=== PATIENT | female | born 1945 | race Hispanic/Latino ===

== ENCOUNTER 2016-12-08 20:38 | Emergency (ER) | payer MEDICARE, OTHER ==
[2016-12-08 20:55] VITALS: BP 136/86; PULSE 105; RESP 16; TEMP 98.7; O2SAT 100
[2016-12-08 21:52] LABS: RBC URINE 16 /hpf (0-3); URINE BACTERIA FEW (<OCC)
--- NOTE | 2016-12-08 21:59 | ED PDOC ---
HPI: Female Pain Time Seen by Provider: 12/08/16 20:57 Chief Complaint (Nursing): Female Genitourinary Chief Complaint (Provider): Superpubic pressure, Dysuria, Hematuria, History Per: Patient History/Exam Limitations: no limitations Onset/Duration Of Symptoms: Hrs Current Symptoms Are (Timing): Still Present Additional Complaint(s): Mari Venegas, a 71 year old female, presents to the ED complaining of superpubic pressure, dysuria, hematuria and frequency which she developed today. The patient states that she was recently diagnosed with an upper respiratory tract infection by her primary care provider and was placed on 500mg of levofloxacin. PMD:Claudio Segovia Past Medical History Reviewed: Historical Data, Nursing Documentation, Vital Signs Vital Signs: Last Vital Signs Temp 98.7 F 12/08/16 20:53 Pulse 105 H 12/08/16 20:53 Resp 16 12/08/16 20:53 BP 136/86 12/08/16 20:53 Pulse Ox 100 12/08/16 20:53 - Medical History PMH: Arthritis, Asthma (Bronchial), Diabetes, HTN - Surgical History Surgical History: Tonsillectomy - Family History Family History: States: Unknown Family Hx - Home Medications Home Medications: Ambulatory Orders Medication Instructions Recorded Naproxen [Naprosyn] 500 mg PO Q12H #20 tab 10/10/15 Levofloxacin 250 mg PO DAILY 7 Days 12/08/16 - Allergies Allergies/Adverse Reactions: Allergies Allergy/AdvReac Type Severity Reaction Status Date / Time iodine Allergy RASH Verified 12/08/16 20:53 Penicillins Allergy RASH Verified 12/08/16 20:53 Sulfa (Sulfonamide Allergy RASH Verified 12/08/16 20:53 Antibiotics) Review of Systems ROS Statement: Except As Marked, All Systems Reviewed And Found Negative Genitourinary Female: Positive for: Dysuria, Frequency, Hematuria, Other ( Experiencing superpubic Pressure.) Physical Exam - Reviewed Nursing Documentation Reviewed: Yes Vital Signs Reviewed: Yes - Physical Exam Appears: Positive for: Non-toxic, No Acute Distress Head Exam: Positive for: ATRAUMATIC, NORMOCEPHALIC Skin: Positive for: Normal Color, Warm, Dry Eye Exam: Positive for: Normal appearance, EOMI, PERRL ENT: Positive for: Normal ENT Inspection Neck: Positive for: Normal, Painless ROM, Supple Cardiovascular/Chest: Positive for: Regular Rate, Rhythm, Chest Non Tender. Negative for: Tachycardia Respiratory: Positive for: Normal Breath Sounds. Negative for: Wheezing, Respiratory Distress Gastrointestinal/Abdominal: Positive for: Normal Exam, Soft. Negative for: Tenderness Back: Positive for: Normal Inspection. Negative for: L CVA Tenderness, R CVA Tenderness Extremity: Positive for: Normal ROM. Negative for: Tenderness, Deformity, Swelling Neurologic/Psych: Positive for: Alert, Oriented - ECG O2 Sat by Pulse Oximetry: 100 (RA) Pulse Ox Interpretation: Normal Medical Decision Making Medical Decision Makin:57 Initial Impression: 71 year old female presenting with Urinary Tract Infection Initial Plan: * Udip * Urine culture * Urinalysis * Reevaluation Scribe Attestation Documented by Julianna Green acting as a scribe for Romie Zhou MD. Provider Attestation: All medical record entries made by the Scribe were at my direction and personally dictated by me. I have reviewed the chart and agree that the record accurately reflects my personal performance of the history, physical exam, medical decision making, and the department course for this patient. I have also personally directed, reviewed, and agree with the discharge instructions and disposition. Disposition - Clinical Impression Clinical Impression: Urinary tract infection - Disposition Referrals: [facility] [Provider Group] Condition: STABLE Prescriptions: Levofloxacin 250 mg PO DAILY 7 Days Instructions: Urinary Tract Infection in Women (ED)
[2016-12-08 22:00] LABS: URINE BILIRUBIN NEGATIVE (NEGATIVE); URINE BLOOD LARGE (NEGATIVE); URINE COLOR STRAW (YELLOW); URINE GLUCOSE (UA) NEG (Normal); URINE KETONE NEGATIVE (NEGATIVE); URINE PROTEIN 30 mg/dL (NEGATIVE); URINE UROBILINOGEN 0.2-1.0 mg/dL (0.2-1.0)
[2016-12-08 22:01] LABS: URINE LEUKOCYTE ESTERASE LARGE Leu/uL (Negative); WBC URINE 110 /hpf (0-5)
== END 2016-12-08 22:32 | disposition home or self-care (01) ==
LOC: H.ER 20:38
DX: N39.0 Urinary tract infection, site not specified (principal)

== ENCOUNTER 2016-12-17 05:32 | Inpatient (IN) | payer MEDICARE, OTHER ==
[2016-12-17 05:41] VITALS: BMI 29.0
[2016-12-17] MEDS ORDERED: Albuterol-Ipratrop 3 mg / 0.5 (3 ml) UD INH STA ×2 (06:03→06:04)
--- NOTE | 2016-12-17 06:13 | ED PDOC ---
HPI: SOB/CHF/COPD Chief Complaint (Provider): Shortness of Breath History Per: Patient History/Exam Limitations: no limitations Onset/Duration Of Symptoms: Hrs (x2) Current Symptoms Are (Timing): Still Present Quality: Tightness Current Respiratory Medications: Albuterol (Nebulizer), Steroid Inhaler (Just finished) <Vladimir Martinez - Last Filed: 12/17/16 06:55> <Chris Shi Jr. - Last Filed: 12/17/16 08:25> Time Seen by Provider: 12/17/16 05:38 Chief Complaint (Nursing): Cough, Cold, Congestion Additional Complaint(s): 71 year old female presents to ED with complaints of SOB x2 hours and a past medical history of asthma and COPD. Patient states she woke up x2 hours ago with SOB and chest tightness, with her nebulizer providing little relief. Notes that she was diagnosed with COPD x2 weeks ago, is currently prescribed Levaquin for COPD exacerbation, and just finished a course of steroids. States that she used to only be diagnosed with asthma in the past. PCP: Claudio Segovia (Vladimir Martinez) Past Medical History Reviewed: Historical Data, Nursing Documentation, Vital Signs - Medical History PMH: Arthritis, Asthma (Bronchial), COPD, Diabetes, HTN - Surgical History Surgical History: Tonsillectomy Denies: No Surg Hx - Family History Family History: States: No Known Family Hx - Living Arrangements Living Arrangements: With Family - Social History Current smoker - smoking cessation education provided: No Ex-Smoker (has not smoked in the last 12 months): No Alcohol: None Drugs: Cannabis <Vladimir Martinez - Last Filed: 12/17/16 06:55> <Chris Shi Jr. - Last Filed: 12/17/16 08:25> Vital Signs: Last Vital Signs Temp 97.9 F 12/17/16 05:41 Pulse 115 H 12/17/16 05:41 Resp 17 12/17/16 05:41 BP 141/75 12/17/16 05:41 Pulse Ox 100 12/17/16 08:10 - Home Medications Home Medications: Ambulatory Orders Medication Instructions Recorded Naproxen [Naprosyn] 500 mg PO Q12H #20 tab 10/10/15 Levofloxacin 250 mg PO DAILY 7 Days 12/08/16 - Allergies Allergies/Adverse Reactions: Allergies Allergy/AdvReac Type Severity Reaction Status Date / Time iodine Allergy RASH Verified 12/17/16 05:40 Penicillins Allergy RASH Verified 12/17/16 05:40 Sulfa (Sulfonamide Allergy RASH Verified 12/17/16 05:40 Antibiotics) Curb-65 Severity Score - CURB-65 Severity Score Confusion: No Respiratory Rate greater than/equal to 30: No Systolic BP <90 or Diastolic BP less than/equal 60mmHg: No Age >64: Yes Curb-65 Score: 1 Percentage 30-day mortality: 2.7% <Vladimir Martinez - Last Filed: 12/17/16 06:55> Wells Criteria for PE - Wells Criteria for Pulmonary Embolism Clinical Signs and Symptoms of DVT: No P.E is #1 Diagnosis, or Equally Likely: No Heart Rate >100: Yes Immobilization at least 3 days;Surgery previous 4 weeks: No Previous, objectively diagnosed PE or DVT: No Hemoptysis: No Malignancy w/treatment within 6 months, or palliative: No Total Score: 1.5 <Vladimir Martinez - Last Filed: 12/17/16 06:55> Review of Systems ROS Statement: Except As Marked, All Systems Reviewed And Found Negative ENT: Positive for: Nose Congestion Respiratory: Positive for: Cough, Shortness of Breath, Other (Chest tightness) <Vladimir Martinez Last Filed: 12/17/16 06:55> Physical Exam - Reviewed Nursing Documentation Reviewed: Yes Vital Signs Reviewed: Yes - Physical Exam Appears: Positive for: Non-toxic, No Acute Distress Head Exam: Positive for: ATRAUMATIC Skin: Positive for: Normal Color, Warm, Dry ENT: Positive for: Normal ENT Inspection Cardiovascular/Chest: Positive for: Regular Rate, Rhythm. Negative for: Murmur Respiratory: Positive for: Rhonchi (at bases bilaterally). Negative for: Respiratory Distress Extremity: Negative for: Deformity Neurologic/Psych: Positive for: Alert, Oriented. Negative for: Motor/Sensory Deficits <Vladimir Martinez - Last Filed: 12/17/16 06:55> - ECG O2 Sat by Pulse Oximetry: 100 (RA) Pulse Ox Interpretation: Normal <Vladimir Martinez - Last Filed: 12/17/16 06:55> - Laboratory Results Result Diagrams: 12/17/16 06:44 12/17/16 06:44 <Chris Shi Jr. - Last Filed: 12/17/16 08:25> Medical Decision Making <Vladimir Martinez - Last Filed: 12/17/16 06:55> <Chris Shi Jr. - Last Filed: 12/17/16 08:25> Medical Decision Makin Initial impression: chest tightness and SOB in setting of known COPD and asthma Initial plan: * EKG * Labs * Trop I * PTT/PT * Duonebs 3mL INH x2 * Methylprednisolone 125mg IVP * BCx * Peak flow pre/post Tx x2 * UA * Re-eval Scribe Attestation: Documented by Asia Paredes acting as a scribe for Vladimir Martinez MD. Scribe Attestation: All medical record entries made by the Scribe were at my direction and personally dictated by me. I have reviewed the chart and agree that the record accurately reflects my personal performance of the history, physical exam, medical decision making, and the department course for this patient. I have also personally directed, reviewed, and agree with the discharge instructions and disposition. (Vladimir Martinez) Disposition - Patient ED Disposition Is Patient to be Admitted: Transfer of Care - Disposition Disposition: Transfer of Care Disposition Time: 07:00 Patient Signed Over To: Chris Shi Jr. <Vladimir Martinez - Last Filed: 12/17/16 06:55> - Patient ED Disposition Is Patient to be Admitted: Yes - Pt Status Changed To: Hospital Disposition Of: Inpatient - Admit Certification Admit to Inpatient:: After my assessment, the patient will require hospitalization for at least two midnights. This is because of the severity of symptoms shown, intensity of services needed, and/or the medical risk in this patient being treated as an outpatient. <Chris Shi Jr. - Last Filed: 12/17/16 08:25> - Clinical Impression Clinical Impression: COPD (chronic obstructive pulmonary disease) - Disposition Condition: FAIR
--- NOTE | 2016-12-17 07:01 | ED PDOC ---
- Laboratory Results Result Diagrams: 12/17/16 06:44 12/17/16 06:44 - ECG O2 Sat by Pulse Oximetry: 100 (RA) Medical Decision Making Medical Decision Making: Time: 0700 Patient signed out by Dr. Martinez pending labs and likely admission Scribe Attestation: Documented by Pippa Maxwell acting as a scribe for Chris Shi MD MD Scribe Attestation: All medical record entries made by the Scribe were at my direction and personally dictated by me. I have reviewed the chart and agree that the record accurately reflects my personal performance of the history, physical exam, medical decision making, and the department course for this patient. I have also personally directed, reviewed, and agree with the discharge instructions and disposition. Disposition - Clinical Impression Clinical Impression: COPD (chronic obstructive pulmonary disease) - POA Present On Arrival: None - Disposition Referrals: Claudio Segovia MD [Primary Care Provider] - Disposition: Hospitalized as Observation Patient Disposition Time: 08:09 Condition: FAIR Progress Note - Review of Symptoms Events since last encounter: Pt s/o to me by overnight MD. Pt is still with some SOB. I will hospitalize as Observation patient. Patient meets observation criteria for COPD due to the following Rose criteria: Inadequate response to outpatient management Pt endorsed to FP resident.
[2016-12-17 07:18] LABS: ALB/GLOB RATIO 1.3 (1.0-2.1); ALKALINE PHOSPHATASE 62 U/L (38-126); ALT/SGPT 34 U/L (9-52); AST/SGOT 27 U/L (14-36); BILIRUBIN,TOTAL 0.6 mg/dl (0.2-1.3); BLOOD UREA NITROGEN 27 mg/dl (7-17); CALCIUM 9.1 mg/dL (8.4-10.2); CARBON DIOXIDE 27 mmol/L (22-30); CHLORIDE 98 mmol/L (98-107); GFR AFRICAN-AMERICAN > 60; GLUCOSE,RANDOM 142 mg/dL (65-105); SODIUM 135 mmol/l (132-148); TOTAL PROTEIN 7.1 G/DL (6.3-8.2)
[2016-12-17 07:22] LABS: BASO % 0.6 % (0.0-2.0); EOS # 0.1 K/uL (0.0-0.7); EOS % 2.3 % (0.0-4.0); LYMPH # 1.2 K/uL (1.0-4.3); LYMPH % 19.8 % (20.0-40.0); MEAN CELL VOLUME 82.4 fl (81.0-99.0); MEAN CORPUSCULAR HEMOGLOBIN 27.8 pg (27.0-31.0); MEAN CORPUSCULAR HGB CONC 33.7 g/dL (33.0-37.0); MEAN PLATELET VOLUME 8.1 fl (7.2-11.7); MONO # 0.6 K/uL (0.0-0.8); MONO % 8.8 % (0.0-10.0); NEUT # 4.3 K/uL (1.8-7.0); NEUT % 68.5 % (50.0-75.0); NRBC % 0.1 % (0.0-0.0); RED CELL DISTRIBUTION WIDTH 13.1 % (11.5-14.5); WHITE BLOOD COUNT 6.3 K/uL (4.8-10.8)
[2016-12-17 07:29] LABS: PARTIAL THROMBOPLASTIN TIME 26.7 Seconds (25.6-37.1)
[2016-12-17 07:52] LABS: RBC URINE 2 /hpf (0-3); URINE BILIRUBIN NEGATIVE (NEGATIVE); URINE BLOOD NEGATIVE (NEGATIVE); URINE COLOR AMBER (YELLOW); URINE GLUCOSE (UA) NEG (Normal); URINE KETONE NEGATIVE (NEGATIVE); URINE LEUKOCYTE ESTERASE NEG Leu/uL (Negative); URINE PROTEIN NEGATIVE (NEGATIVE); URINE UROBILINOGEN 0.2-1.0 mg/dL (0.2-1.0); WBC URINE 1 /hpf (0-5)
[2016-12-17] MEDS ORDERED: Albuterol 0.083% Inhal Sol (2.5 mg/3 mL) UD INH PRN (08:34)
[2016-12-17] MEDS ORDERED: Azithromycin 500 MG in Sodium Chloride 0.9% 250 ML IVPB STA (08:42)
[2016-12-17] MEDS ORDERED: Sodium Chloride 0.9% 1,000 ML IV SCH (08:45)
--- NOTE | 2016-12-17 10:13 | CP.PCM.HP ---
History of Present Illness - History of Present Illness History of Present Illness: 71 yr old F admitted for worsening SOB and persistent cough since 4am this morning. Patient reports she woke up from her sleep and could not breath through her nose or mouth, she used her albuterol rescue inhaler with no relief. She subsequently took an albuterol nebulize tx and had mild relief. She came to ER via ambulance as she did not feel much better. Patient denies chest pain, nausea, vomiting, fever, chills, weakness, dizziness or visual changes. She has a PMHx of COPD (dx 2 wks ago), Asthma , HTN, NIDDM, Peripheral Neuropathy and Anxiety. Patient reports she finished a course of steroids or recently dx COPD and is on Levaquin 250mg PO QD for UTI. She has been taking cold and cough medicine/cough drops for symptomatic relief of URI x 2 weeks. Her last asthma exacerbation was 2 yrs ago, she has never been intubated. At home she manages her asthma with Symbicort daily and Albuterol rescue inhaler ( had not used it in 2yrs). Patient has no other concerns or complaints at this time. PCP: Dr. Segovia PMHx: COPD (dx 2 wks ago), Asthma , HTN, NIDDM, Peripheral Neuropathy and Anxiety PSurgHx: Tonsillectomy SocHx: former smoker (1 pack per wk x 15 yrs-quit 30yrs ago), denies drugs/Etoh Meds: Metformin 850mg PO BID, Pro-Air HFA 90mcg per actuation 2 puffs inh Q4 PRN for bronchospasm, Symbicort 80-4.5 2puffs inh BID, Losartan-HCTZ 100-12.5mg PO QD, Metoprolol Succinate ER 25mg PO QD, Spironolactone 25mg PO QD, Xanax 0.25mg PO QD, ASA 81mg PO QD, Levaquin 250mg PO QD x 7days Allergies: Penicillin, Iodine, Sulfa drugs ED Course: -Vitals: BP 141/75 mmHg, P 115, R 17 on 2L O2 via NC with 100% O2 sat, T 97.9F, proBNP 55 -EKG no ST-T changes, CXR labs: Troponin negative x 1, CBC/BMP/Coags wnl, UA negative for UTI, BCx -Tx: Duonebs INH x 2 (w/ pre/post peak flows) , Methylprednisolone 125mg IVP x 1 , O2 2L via NC -patient remained SOB with tachycardia Present on Admission - Present on Admission Any Indicators Present on Admission: No History of DVT/PE: No History of Uncontrolled Diabetes: No Urinary Catheter: No Decubitus Ulcer Present: No Review of Systems - Review of Systems All systems: reviewed and no additional remarkable complaints except (for what is mentioned in HPI) Past Patient History - Past Social History Alcohol: None Drugs: Cannabis - CARDIAC Hx Hypertension: Yes - PULMONARY Hx Asthma: Yes (Bronchial) Hx Chronic Obstructive Pulmonary Disease (COPD): Yes - NEUROLOGICAL Hx Neurological Disorder: Yes Other/Comment: Neuropathy - ENDOCRINE/METABOLIC Hx Diabetes Mellitus Type 2: Yes - MUSCULOSKELETAL/RHEUMATOLOGICAL Hx Arthritis: Yes - GENITOURINARY/GYNECOLOGICAL Hx Genitourinary Disorders: Yes Other/Comment: Hx Uterine fibroids - PSYCHIATRIC Hx Substance Use: No - SURGICAL HISTORY Hx Tonsillectomy: Yes - ANESTHESIA Hx Anesthesia: Yes Hx Anesthesia Reactions: No Meds Allergies/Adverse Reactions: Allergies Allergy/AdvReac Type Severity Reaction Status Date / Time iodine Allergy RASH Verified 12/17/16 05:40 Penicillins Allergy RASH Verified 12/17/16 05:40 Sulfa (Sulfonamide Allergy RASH Verified 12/17/16 05:40 Antibiotics) Physical Exam - Constitutional Appears: Non-toxic, No Acute Distress, Younger Than Stated Age - Head Exam Head Exam: ATRAUMATIC, NORMOCEPHALIC - Eye Exam Eye Exam: EOMI, PERRL - ENT Exam ENT Exam: Mucous Membranes Moist - Neck Exam Neck exam: Positive for: Full Rom. Negative for: Lymphadenopathy - Respiratory Exam Respiratory Exam: Rhonchi (in bilateral lower lobes), Wheezes (mild). absent: Accessory Muscle Use (on supplemental O2 2L via nasal cannula) - Cardiovascular Exam Cardiovascular Exam: Tachycardia (Pulse 112-115), REGULAR RHYTHM, +S1, +S2 - GI/Abdominal Exam GI & Abdominal Exam: Normal Bowel Sounds, Soft. absent: Distended, Tenderness - Extremities Exam Extremities exam: Positive for: full ROM. Negative for: calf tenderness, joint swelling, pedal edema - Back Exam Back exam: FULL ROM. absent: CVA tenderness (L), CVA tenderness (R) - Neurological Exam Neurological exam: Alert, CN II-XII Intact, Oriented x3 - Psychiatric Exam Psychiatric exam: Normal Affect, Normal Mood - Skin Skin Exam: Dry, Intact, Normal Color, Warm Results - Vital Signs Recent Vital Signs: Last Vital Signs Temp 97.9 F 12/17/16 05:41 Pulse 115 H 12/17/16 05:41 Resp 17 12/17/16 05:41 BP 141/75 12/17/16 05:41 Pulse Ox 100 12/17/16 08:10 - Labs Result Diagrams: 12/17/16 06:44 12/17/16 06:44 Assessment & Plan - Assessment and Plan (Free Text) Assessment: 71 yr old F admitted for worsening SOB and persistent cough found to have COPD exacerbation with tachycardia, with PMHx COPD (dx 2 wks ago), Asthma , HTN, NIDDM, Peripheral Neuropathy and Anxiety. In ED patient remained with SOB and tachycardic with mild improvement despite duoneb tx, supplemental O2 2L and methylprednisolone 125mg IVP x 1, EKG no ST-T changes, troponon negative x 1, CXR no active disease (essentially unchanged compared to prior 05/04/2014). Patient is currently tachycardic with pulse b/w 112-115, stable on supplemental O2 2L via NC, SOB and cough are mildly alleviated but persist. 1. SOB and persistent cough -stable -supplemental O2 2L PRN for O2 sat <92% -likely COPD exacerbation vs Asthma exacerbation secondary to URI -CXR 12/17/16: No active disease (essentially unchanged compared to prior 2013) -Admit to tele -Albuterol 2.5mg INH Q4 PRN for SOB -Ipratropium 0.5mg INH once -Methylprednisolone 60mg IV Q8 -Mucinex 600-30mg PO Q12 PRN cough and congestion -Azithromycin 500mg IVP x 5 days -f/u troponin Q8 x 2 -f/u sputum culture, f/u blood culture -Pulmonology consult appreciated: Dr. Thompson (requested by patient) 2. Tachycardia -likely secondary to mutiple SAB tx at home prior to admission and SOB -hx of anxiety -rest of vital signs wnl -admit to tele, monitor VS Q4 3. HTN -controlled -continue home medications (Losartan-HCTZ 100-12.5mg PO QD, Metoprolol Succinate ER 25mg PO QD, Spironolactone 25mg PO QD) 4. NIDDM -controlled, HbA1c 6.8 (08/27/16) -hold home med (Metformin 850mg PO BID) -Insuline Lispro SC ACHS -medium dose protocol -diet: moderate carbohydrate/heart healthy 2g Na -hypoglycemia protocol 5. Anxiety -continue with home med (Xanax 0.25mg PO QD) 6. Peripheral Neuropathy -continue home med (Gabapentin 100mg TID) 7. DVT prophylaxis -Lovenox 40mg SC QD -SCD's - Date & Time Date: 12/17/16 Time: 08:15
[2016-12-17] MEDS ORDERED: Ipratropium 0.02% Inhal Soln (0.5 mg/2.5 ml) UD IH STA (10:58)
[2016-12-17] MEDS ORDERED: Ipratropium 0.02% Inhal Soln (0.5 mg/2.5 ml) UD IH ONE (11:09)
[2016-12-17] MEDS ORDERED: Acetaminophen 160 mg/5 ml UD ONE (11:10)
[2016-12-17] MEDS ORDERED: Acetaminophen 325 MG/10.15 ML PO ONE (11:15)
[2016-12-17] MEDS ORDERED: Acetaminophen 160 mg/5 ml UD PO ONE (11:30)
[2016-12-17] MEDS ORDERED: Albuterol-Ipratrop 3 mg / 0.5 (3 ml) UD INH SCH ×2 (12:00→14:00)
[2016-12-17] MEDS: Metoprolol Succinate 25 mg XL Tab PO SCH (13:00)
--- NOTE | 2016-12-17 13:13 | RAD ---
HISTORY: SOB COMPARISON: 05/04/2014. FINDINGS: LUNGS: No active pulmonary disease. PLEURA: No significant pleural effusion identified, no pneumothorax apparent. CARDIOVASCULAR: No radiographic findings to suggest acute or significant cardiovascular disease. OSSEOUS STRUCTURES: No significant abnormalities. VISUALIZED UPPER ABDOMEN: Normal. OTHER FINDINGS: None. IMPRESSION: No active disease. No significant interval change compared to the prior examination(s).
[2016-12-17] MEDS ORDERED: Sodium Chloride 3% for Inhalation 4 ML VIAL.NEB IH PRN (13:54)
[2016-12-17] MEDS ORDERED: Glucagon Recombinant 1 mg Inj IM PRN (14:06)
[2016-12-17] MEDS ORDERED: Dextrose 50% SYRINGE Inj (50 ml) IV PRN (14:06)
[2016-12-17] MEDS ORDERED: guaiFENesin-DM 600-30 mg ER Tab PO PRN (14:29)
--- NOTE | 2016-12-17 14:38 | CARD ---
APPROVED REPORT EKG Measurement Heart [id number] <Conclusion> Sinus tachycardia with premature supraventricular complexes Otherwise normal ECG
[2016-12-17] MEDS: Insulin Regular 100 units/ml SC SCH ×2 (17:35→21:25)
[2016-12-17] MEDS: methylPREDNISolone 60 MG in Sodium Chloride 0.9% 50 ML IV SCH (17:36)
[2016-12-17] MEDS: Albuterol-Ipratrop 3 mg / 0.5 (3 ml) UD INH SCH (19:14)
[2016-12-17] MEDS: guaiFENesin-DM 600-30 mg ER Tab PO SCH (20:33)
[2016-12-18] MEDS: methylPREDNISolone 60 MG in Sodium Chloride 0.9% 50 ML IV SCH (01:10)
[2016-12-18] MEDS ORDERED: Levalbuterol 0.63 MG/3 ML Inhal Soln UD INH PRN (01:44)
[2016-12-18] MEDS: Albuterol-Ipratrop 3 mg / 0.5 (3 ml) UD INH SCH ×4 (07:52→19:08)
[2016-12-18] MEDS ORDERED: Patient's Own Med (Losartan/Hydrochlorothiazide [Losartan-Hctz 100-12.5 Mg Tab] 1 TAB) PO SCH (09:00)
[2016-12-18] MEDS ORDERED: Azithromycin 500 MG in Sodium Chloride 0.9% 250 ML IVPB SCH (09:00)
--- NOTE | 2016-12-18 09:22 | CP.PCM.CON ---
History of Present Illness - History of Present Illness History of Present Illness: Asked to evaluate this pleasant 71 year old female who was admitted because of cough and SOB. She has a longstanding history of bronchial asthma since her 30' s and was recently told she has COPD as well after having office spirometry as an outpatient. She awoke with severe SOB and congested cough yesterday which did not respond to use of her rescue inhaler or nebulizer. She had begun to develop nasal congestion and [id number] about a week ago which caused her to develop hoarsness of the voice. She was unaware of fever, but did have chills. and also yellow nasal discharge. She has complaint now of abdominal pains which may be related to coughing. She does have multiple allergies, but no pets at home. She did have an ill contact at home. She smoked about one pack of cigarettes daily for 18-20 years. There has been no prior history of pneumonia. Past Patient History - Past Medical History & Family History Past Medical History?: Yes - Past Social History Smoking Status: Former Smoker - CARDIAC Hx Hypertension: Yes - PULMONARY Hx Asthma: Yes (Bronchial) Hx Chronic Obstructive Pulmonary Disease (COPD): Yes - NEUROLOGICAL Hx Neurological Disorder: Yes Other/Comment: Neuropathy - ENDOCRINE/METABOLIC Hx Diabetes Mellitus Type 2: Yes - INTEGUMENTARY Hx Dermatological Problems: No - MUSCULOSKELETAL/RHEUMATOLOGICAL Hx Arthritis: Yes Hx Falls: No - GENITOURINARY/GYNECOLOGICAL Hx Genitourinary Disorders: Yes Other/Comment: Hx Uterine fibroids - PSYCHIATRIC Hx Substance Use: No - SURGICAL HISTORY Hx Tonsillectomy: Yes - ANESTHESIA Hx Anesthesia: Yes Hx Anesthesia Reactions: No Meds Allergies/Adverse Reactions: Allergies Allergy/AdvReac Type Severity Reaction Status Date / Time iodine Allergy RASH Verified 12/17/16 05:40 Penicillins Allergy RASH Verified 12/17/16 05:40 Sulfa (Sulfonamide Allergy RASH Verified 12/17/16 05:40 Antibiotics) - Medications Medications: Current Medications Acetaminophen (Tylenol 325mg Tab) 650 mg PO Q6 PRN PRN Reason: Fever >100.4 F Albuterol Sulfate (Albuterol 0.083% Inhal Radha (2.5 Mg/3 Ml) Ud) 2.5 mg INH RQ4 PRN PRN Reason: Shortness of Breath Last Admin: 12/17/16 22:59 Dose: 2.5 mg Albuterol/Ipratropium (Duoneb 3 Mg/0.5 Mg (3 Ml) Ud) 3 ml INH RQID [facility] Last Admin: 12/18/16 07:52 Dose: 3 ml Alprazolam (Xanax) 0.25 mg PO HS [facility] Stop: 12/24/16 20:49 Last Admin: 12/17/16 22:31 Dose: Not Given Aspirin (Ecotrin) 81 mg PO DAILY [facility] Dextrose (Dextrose 50% Inj) 0 ml IV STAT PRN; Protocol PRN Reason: Hyglycemia Protocol Dextrose (Glutose 15) 0 gm PO ONCE PRN; Protocol PRN Reason: Hypoglycemia Protocol Enoxaparin Sodium (Lovenox) 40 mg SC DAILY [facility] PRN Reason: Protocol Gabapentin (Neurontin) 100 mg PO TID [facility] Last Admin: 12/17/16 18:43 Dose: 100 mg Glucagon (Glucagen Diagnostic Kit) 0 mg IM STAT PRN; Protocol PRN Reason: Hypoglycemia Protocol Guaifenesin/Dextromethorphan (Mucinex-Dm 600-30 Mg) 2 tab PO Q12 [facility] Last Admin: 12/17/16 20:33 Dose: 2 tab Home Med (Levofloxacin 250 Mg In D5w [Levaquin 250mg]) 250 mg PO DAILY [facility] Hydrochlorothiazide (Microzide) 12.5 mg PO DAILY [facility] Methylprednisolone 60 mg/ (Sodium Chloride) 50 mls @ 100 mls/hr IV Q8 [facility] Last Admin: 12/18/16 01:10 Dose: 100 mls/hr Azithromycin 500 mg/ Sodium (Chloride) 250 mls @ 250 mls/hr IVPB DAILY [facility] Stop: 12/21/16 09:59 Insulin Human Regular (Humulin R) 0 units SC ACHS [facility] PRN Reason: Protocol Last Admin: 12/17/16 21:25 Dose: Not Given Levalbuterol HCl (Xopenex) 0.63 mg INH RQ8 PRN PRN Reason: Shortness of Breath Losartan Potassium (Cozaar) 100 mg PO DAILY [facility] Metoprolol Succinate (Toprol Xl) 25 mg PO DAILY [facility] Last Admin: 12/17/16 13:00 Dose: 25 mg Spironolactone (Aldactone) 25 mg PO DAILY [facility] Physical Exam - Additional Findings Additional findings: Well-nourished, well-developed female slightly overweight, in no acute distress. There is slight hoarseness of her voice. Pharynx is pink and mucous membranes are moist. No exudate. Nasal passages are patent bilaterally. No bleeding or exudate. Conjunctivae are pink and there is no scleral icterus. Neck is supple and trachea is midline. No neck vein distention or carotid bruit. No palpable lymphadenopathy. No dullness on chest percussion. Equal expansion. Increased AP diameter of the thorax. Normal vocal tactile fremitus. Breath sounds are present bilaterally, somewhat diminished. Expiratory phase is mildly prolonged. Normal wheezing is appreciated. Bronchial breathing or egophony. Rare dry basal rales posteriorly. Few sonorous rhonchi in the dependent zones of both lower lobes. Heart sounds are slightly distant rhythm is regular, mildly tachycardic. No Murmur. Abdomen is soft and nontender. All sounds are normal. No dependent edema of the lower extremities. No calf tenderness. No cyanosis. Results - Vital Signs Recent Vital Signs: Last Vital Signs Temp 97.8 F 12/18/16 08:00 Pulse 110 H 12/18/16 08:00 Resp 18 12/18/16 08:00 BP 132/82 12/18/16 08:00 Pulse Ox 97 12/18/16 08:00 - Labs Result Diagrams: 12/17/16 06:44 12/17/16 06:44 Labs: Laboratory Results - last 24 hr 12/17/16 12/17/16 12/17/16 14:45 16:17 21:20 POC Glucose (mg/dL) 206 H 216 H Troponin I < 0.0120 Assessment & Plan (1) Asthma with COPD with exacerbation Status: Acute Priority: High (2) Sinusitis nasal Status: Acute Priority: High (3) Posterior rhinorrhea Status: Acute Priority: High (4) Diabetes mellitus Status: Chronic Priority: High Comment: with diabetic neuropathy. - Assessment and Plan (Free Text) Plan: Consider LABA/ICS when stable. Taper steroids as quickly as possible. Respiratory allergy profile requested. Start montelukast. Thank you. - Date & Time Date: 12/18/16 Time: 09:24
[2016-12-18] MEDS: Enoxaparin 40 mg Syringe SC SCH (09:46)
[2016-12-18] MEDS: guaiFENesin-DM 600-30 mg ER Tab PO SCH ×2 (09:47→21:31)
[2016-12-18] MEDS: Metoprolol Succinate 25 mg XL Tab PO SCH (11:35)
[2016-12-18] MEDS: Insulin Regular 100 units/ml SC SCH ×3 (12:56→21:32)
--- NOTE | 2016-12-18 13:43 | CP.PCM.PN ---
Subjective - Date & Time of Evaluation Date of Evaluation: 12/18/16 Time of Evaluation: 10:00 - Subjective Subjective: Patient seen and examined at bedside with attending during morning rounds. Patient appears comfortably sitting in chair. She reports intermittent SOB overnight which is better from initial assessment. She continues to experience cough productive of whitish, non-bloody sputum. Patient has been receiving duoneb treatments and IV steroids with continued improvement. She has been afebrile with no chest pain, abdominal pain, nausea or vomiting. Objective - Vital Signs/Intake and Output Vital Signs (last 24 hours): Temp Pulse Resp BP Pulse Ox 98.6 F 102 H 18 119/74 93 L 12/18/16 12:00 12/18/16 12:00 12/18/16 12:00 12/18/16 12:00 12/18/16 12:00 - Medications Medications: Current Medications Acetaminophen (Tylenol 325mg Tab) 650 mg PO Q6 PRN PRN Reason: Fever >100.4 F Albuterol Sulfate (Albuterol 0.083% Inhal Radha (2.5 Mg/3 Ml) Ud) 2.5 mg INH RQ4 PRN PRN Reason: Shortness of Breath Last Admin: 12/17/16 22:59 Dose: 2.5 mg Albuterol/Ipratropium (Duoneb 3 Mg/0.5 Mg (3 Ml) Ud) 3 ml INH RQID [facility] Last Admin: 12/18/16 11:59 Dose: 3 ml Alprazolam (Xanax) 0.25 mg PO HS [facility] Stop: 12/24/16 20:49 Last Admin: 12/17/16 22:31 Dose: Not Given Aspirin (Ecotrin) 81 mg PO DAILY [facility] Last Admin: 12/18/16 09:46 Dose: 81 mg Azithromycin (Zithromax) 250 mg PO DAILY [facility] Stop: 12/21/16 09:01 Last Admin: 12/18/16 12:54 Dose: 250 mg Dextrose (Dextrose 50% Inj) 0 ml IV STAT PRN; Protocol PRN Reason: Hyglycemia Protocol Dextrose (Glutose 15) 0 gm PO ONCE PRN; Protocol PRN Reason: Hypoglycemia Protocol Enoxaparin Sodium (Lovenox) 40 mg SC DAILY [facility] PRN Reason: Protocol Last Admin: 12/18/16 09:46 Dose: 40 mg Gabapentin (Neurontin) 100 mg PO TID [facility] Last Admin: 12/18/16 09:47 Dose: 100 mg Glucagon (Glucagen Diagnostic Kit) 0 mg IM STAT PRN; Protocol PRN Reason: Hypoglycemia Protocol Guaifenesin/Dextromethorphan (Mucinex-Dm 600-30 Mg) 2 tab PO Q12 [facility] Last Admin: 12/18/16 09:47 Dose: 2 tab Hydrochlorothiazide (Microzide) 12.5 mg PO DAILY [facility] Last Admin: 12/18/16 09:46 Dose: 12.5 mg Methylprednisolone 30 mg/ (Sodium Chloride) 50 mls @ 100 mls/hr IV Q8 [facility] Ibuprofen (Motrin Tab) 600 mg PO Q8 PRN PRN Reason: Pain, moderate (4-7) Insulin Human Regular (Humulin R) 0 units SC ACHS [facility] PRN Reason: Protocol Last Admin: 12/18/16 12:56 Dose: 8 units Levalbuterol HCl (Xopenex) 0.63 mg INH RQ8 PRN PRN Reason: Shortness of Breath Levofloxacin (Levaquin) 250 mg PO DAILY [facility] Losartan Potassium (Cozaar) 100 mg PO DAILY [facility] Last Admin: 12/18/16 09:45 Dose: 100 mg Metoprolol Succinate (Toprol Xl) 25 mg PO DAILY [facility] Last Admin: 12/18/16 11:35 Dose: 25 mg Montelukast Sodium (Singulair) 10 mg PO HS [facility] Spironolactone (Aldactone) 25 mg PO DAILY [facility] Last Admin: 12/18/16 09:45 Dose: 25 mg - Labs Labs: PT 10.4 Seconds (9.8-13.1) 12/17/16 06:44 INR 0.9 (0.9-1.2) 12/17/16 06:44 APTT 26.7 Seconds (25.6-37.1) 12/17/16 06:44 - Constitutional Appears: No Acute Distress - Head Exam Head Exam: ATRAUMATIC, NORMAL INSPECTION, NORMOCEPHALIC - Eye Exam Eye Exam: EOMI, PERRL - ENT Exam ENT Exam: Mucous Membranes Moist - Respiratory Exam Respiratory Exam: Prolonged Expiratory Phase. absent: Accessory Muscle Use, Respiratory Distress Additional comments: B/L air entry present but decreased b/l. Faint expiratory wheezes noted with no retractions or respiratory distress. - Cardiovascular Exam Cardiovascular Exam: Tachycardia, REGULAR RHYTHM, +S1, +S2, +S4. absent: Murmur - GI/Abdominal Exam GI & Abdominal Exam: Soft, Normal Bowel Sounds. absent: Distended, Tenderness, Rebound - Extremities Exam Extremities Exam: Normal Capillary Refill. absent: Calf Tenderness, Pedal Edema - Neurological Exam Neurological Exam: Alert, Awake, Oriented x3 - Psychiatric Exam Psychiatric exam: Normal Affect, Normal Mood - Skin Skin Exam: Dry, Warm Assessment and Plan - Assessment and Plan (Free Text) Assessment: 71 y/o female with PMH including HTN, NIDDM, Peripheral neuropathy, Asthma, Newly diagnosed COPD, Anxiety presented with worsening SOB and persistent cough. Patient was subsequently admitted for COPD exacerbation and has been receiving IV steroids, inhaled duoneb treatments, antiobiotics and O2. Pulmonary was consulted and patient has been improving on telemetry although SOB and cough are still present. Plan: SOB and Cough -Likely secondary to acute COPD exacerbation -Has been improving since admission -CXR from 12/17/16 revealed no active disease (essentially unchanged compared to prior 05/04/2014) -Serial Troponins negative -Continue supplemental O2 2L PRN for O2 sat <92% -Duonebs QID -Pulmonology consult, Dr Thompson, appreciated -Methylprednisolone 60mg IV Q8h decreased to 30mg IV Q8h -Mucinex 600-30mg PO Q12 PRN cough and congestion -Azithromycin daily (Current day 2) -Sputum culture pending Tachycardia -Likely secondary to albuterol treatments -Patient has hx of anxiety which exacerbates tachycardia at times -Continue telemetry monitoring Hypertension -Well controlled -Continue home medications(Losartan-HCTZ 100-12.5mg PO QD, Metoprolol Succinate ER 25mg PO QD, Spironolactone 25mg PO QD) NIDDM -Controlled, Last HbA1c 6.8% (08/27/16) -Will hold home meds while admitted (Metformin 850mg PO BID) -MDSS -Hypoglycemia protocol Anxiety -Continue with home med (Xanax 0.25mg PO QD) Peripheral Neuropathy -Continue home med (Gabapentin 100mg TID) 7. DVT prophylaxis -Lovenox 40mg SC daily -SCDs
[2016-12-18] MEDS ORDERED: Bismuth Subsalicylate 262 mg Chew Tab PO PRN (14:34)
[2016-12-18] MEDS: LEVAQUIN 250 MG PO SCH (15:31)
[2016-12-18] MEDS: methylPREDNISolone 30 MG in Sodium Chloride 0.9% 50 ML IV SCH (17:22)
[2016-12-19] MEDS: methylPREDNISolone 30 MG in Sodium Chloride 0.9% 50 ML IV SCH ×3 (00:58→17:17)
[2016-12-19] MEDS: Insulin Regular 100 units/ml SC SCH ×4 (07:03→21:34)
[2016-12-19] MEDS: Albuterol-Ipratrop 3 mg / 0.5 (3 ml) UD INH SCH ×2 (07:38→11:28)
--- NOTE | 2016-12-19 07:45 | CP.PCM.PN ---
Subjective - Date & Time of Evaluation Date of Evaluation: 12/19/16 Time of Evaluation: 08:20 - Subjective Subjective: Patient seen and examined at bedside, sitting in bed eating breakfast, in no acute distress. Patient denies SOB, chest pain, weakness or dizziness. Tolerating PO diet, ambulating without difficulty. No concerns or complaints at this time. Objective - Vital Signs/Intake and Output Vital Signs (last 24 hours): Temp Pulse Resp BP Pulse Ox 98.3 F 100 H 18 119/73 97 12/19/16 05:00 12/19/16 05:00 12/19/16 05:00 12/19/16 05:00 12/19/16 05:00 - Medications Medications: Current Medications Acetaminophen (Tylenol 325mg Tab) 650 mg PO Q6 PRN PRN Reason: Fever >100.4 F Albuterol Sulfate (Albuterol 0.083% Inhal Radha (2.5 Mg/3 Ml) Ud) 2.5 mg INH RQ4 PRN PRN Reason: Shortness of Breath Last Admin: 12/17/16 22:59 Dose: 2.5 mg Albuterol/Ipratropium (Duoneb 3 Mg/0.5 Mg (3 Ml) Ud) 3 ml INH RQID [facility] Last Admin: 12/19/16 07:38 Dose: 3 ml Alprazolam (Xanax) 0.25 mg PO HS [facility] Stop: 12/24/16 20:49 Last Admin: 12/18/16 21:31 Dose: 0.25 mg Aspirin (Ecotrin) 81 mg PO DAILY [facility] Last Admin: 12/18/16 09:46 Dose: 81 mg Azithromycin (Zithromax) 250 mg PO DAILY [facility] Stop: 12/21/16 09:01 Last Admin: 12/18/16 12:54 Dose: 250 mg Bismuth Subsalicylate (Pepto Bismol) 262 mg PO Q4 PRN PRN Reason: GI upset, gas Last Admin: 12/18/16 15:32 Dose: 262 mg Dextrose (Dextrose 50% Inj) 0 ml IV STAT PRN; Protocol PRN Reason: Hyglycemia Protocol Dextrose (Glutose 15) 0 gm PO ONCE PRN; Protocol PRN Reason: Hypoglycemia Protocol Enoxaparin Sodium (Lovenox) 40 mg SC DAILY [facility] PRN Reason: Protocol Last Admin: 12/18/16 09:46 Dose: 40 mg Gabapentin (Neurontin) 100 mg PO TID [facility] Last Admin: 12/18/16 17:23 Dose: 100 mg Glucagon (Glucagen Diagnostic Kit) 0 mg IM STAT PRN; Protocol PRN Reason: Hypoglycemia Protocol Guaifenesin/Dextromethorphan (Mucinex-Dm 600-30 Mg) 2 tab PO Q12 [facility] Last Admin: 12/18/16 21:31 Dose: 2 tab Hydrochlorothiazide (Microzide) 12.5 mg PO DAILY [facility] Last Admin: 12/18/16 09:46 Dose: 12.5 mg Methylprednisolone 30 mg/ (Sodium Chloride) 50 mls @ 100 mls/hr IV Q8 [facility] Last Admin: 12/19/16 00:58 Dose: 100 mls/hr Ibuprofen (Motrin Tab) 600 mg PO Q8 PRN PRN Reason: Pain, moderate (4-7) Insulin Human Regular (Humulin R) 0 units SC ACHS [facility] PRN Reason: Protocol Last Admin: 12/19/16 07:03 Dose: 6 units Levalbuterol HCl (Xopenex) 0.63 mg INH RQ8 PRN PRN Reason: Shortness of Breath Last Admin: 12/19/16 02:54 Dose: 0.63 mg Levofloxacin (Levaquin) 250 mg PO DAILY [facility] Last Admin: 12/18/16 15:31 Dose: 250 mg Losartan Potassium (Cozaar) 100 mg PO DAILY [facility] Last Admin: 12/18/16 09:45 Dose: 100 mg Metoprolol Succinate (Toprol Xl) 25 mg PO DAILY [facility] Last Admin: 12/18/16 11:35 Dose: 25 mg Montelukast Sodium (Singulair) 10 mg PO HS [facility] Last Admin: 12/18/16 21:31 Dose: 10 mg Spironolactone (Aldactone) 25 mg PO DAILY [facility] Last Admin: 12/18/16 09:45 Dose: 25 mg - Labs Labs: PT 10.4 Seconds (9.8-13.1) 12/17/16 06:44 INR 0.9 (0.9-1.2) 12/17/16 06:44 APTT 26.7 Seconds (25.6-37.1) 12/17/16 06:44 - Constitutional Appears: Well, No Acute Distress - Head Exam Head Exam: ATRAUMATIC, NORMOCEPHALIC - Eye Exam Eye Exam: EOMI, PERRL - ENT Exam ENT Exam: Mucous Membranes Moist - Neck Exam Neck Exam: Full ROM. absent: Lymphadenopathy - Respiratory Exam Respiratory Exam: Clear to Ausculation Bilateral, NORMAL BREATHING PATTERN. absent: Rhonchi, Wheezes - Cardiovascular Exam Cardiovascular Exam: REGULAR RHYTHM, +S1, +S2 - GI/Abdominal Exam GI & Abdominal Exam: Soft, Normal Bowel Sounds. absent: Distended, Tenderness - Extremities Exam Extremities Exam: Full ROM. absent: Calf Tenderness, Joint Swelling, Pedal Edema - Back Exam Back Exam: absent: CVA tenderness (L), CVA tenderness (R) - Neurological Exam Neurological Exam: Alert, Awake, CN II-XII Intact, Normal Gait, Oriented x3 - Psychiatric Exam Psychiatric exam: Normal Affect, Normal Mood - Skin Skin Exam: Dry, Intact, Normal Color, Warm Assessment and Plan - Assessment and Plan (Free Text) Assessment: 71 yr old F admitted for worsening SOB and persistent cough found to have COPD exacerbation with tachycardia, with PMHx COPD (dx 2 wks ago), Asthma , HTN, NIDDM, Peripheral Neuropathy and Anxiety. Patient is being treated with duoneb tx, corticosteroids and on day 3 of Azithromycin. Pulmonology is on board. Patient is stable and improving. 1. SOB and persistent cough -stable -supplemental O2 2L PRN for O2 sat <92% -likely COPD exacerbation secondary to URI -CXR 12/17/16: No active disease (essentially unchanged compared to prior 2013) -Serial Troponins negative -Darrick QID -Pulmonology consult, Dr Thompson, appreciated: tapers steroids as quickly as possible, resp allergy profile, Montelukast, LABA+ICS when stable -Methylprednisolone 30mg IV Q8h, will taper -Montelukast 10 mg PO HS -Mucinex 600-30mg PO Q12 PRN cough and congestion -Azithromycin daily (Current day 3) -Sputum culture no growth, BCx no gowth x 48 hrs 2. Tachycardia -likely secondary to mutiple SAB tx at home prior to admission and SOB -hx of anxiety -rest of vital signs wnl -continue monitoring in tele 3. HTN -controlled -continue home medications (Losartan-HCTZ 100-12.5mg PO QD, Metoprolol Succinate ER 25mg PO QD, Spironolactone 25mg PO QD) 4. NIDDM -controlled, HbA1c 6.8 (08/27/16) -resumed home med Metformin 850mg PO BID -Insulin [facility] ACHS -diet: moderate carbohydrate/heart healthy 2g Na -hypoglycemia protocol 5. Anxiety -continue with home med (Xanax 0.25mg PO QD) 6. Peripheral Neuropathy -continue home med (Gabapentin 100mg TID) 7. DVT prophylaxis -Lovenox 40mg SC QD -SCD's
[2016-12-19] MEDS: LEVAQUIN 250 MG PO SCH (08:40)
[2016-12-19] MEDS: Enoxaparin 40 mg Syringe SC SCH (08:41)
[2016-12-19] MEDS: guaiFENesin-DM 600-30 mg ER Tab PO SCH ×2 (08:42→21:31)
[2016-12-19] MEDS: Metoprolol Succinate 25 mg XL Tab PO SCH (08:46)
[2016-12-19] MEDS: Albuterol-Ipratrop 3 mg / 0.5 (3 ml) UD INH PRN (15:37)
[2016-12-20 04:41] VITALS: RESP 18
[2016-12-20] MEDS: Albuterol-Ipratrop 3 mg / 0.5 (3 ml) UD INH PRN (05:10)
[2016-12-20] MEDS: Insulin Regular 100 units/ml SC SCH ×2 (06:33→12:12)
[2016-12-20] MEDS: LEVAQUIN 250 MG PO SCH (08:20)
[2016-12-20] MEDS: Enoxaparin 40 mg Syringe SC SCH ×2 (08:20→08:27)
[2016-12-20] MEDS: guaiFENesin-DM 600-30 mg ER Tab PO SCH (08:21)
[2016-12-20] MEDS: Metoprolol Succinate 25 mg XL Tab PO SCH (08:23)
--- NOTE | 2016-12-20 09:38 | CP.PCM.PN ---
Subjective - Date & Time of Evaluation Date of Evaluation: 12/20/16 Time of Evaluation: 09:28 - Subjective Subjective: Appears to have done well on present regimen. She did need a stat aerosol treatment this morning for cough/SOB. She is presently seated in a bedside chair awaiting discharge to home. There is some nasal congestion as post nasal drip for which she has been using fluticasone nasal spray at home. On questioning it becomes apparent that she is not using all her medications properly. She does admit to once a day use of her Symbicort, and stopping her montelukast because it caused her to have dysuria. Presently there is a moist cough. Neck is supple and trachea midline. No dullness on chest percussion. Increased AP diameter. Breath sounds are present bilaterally, diminished. No wheezing is heard, few sonorous rhonchi are present in both lower lobes. Rare basal rales posteriorly. No bronchial breathing or egophony. Instructed her on need to follow instructions regarding medication usage. Instructed that Symbicort use is 2 puffs twice daily, every day, and montelukast is every night. She seems to understand the need for compliance. She also has a rescue inhaler that will continue to be used as needed. She has fluticasone at home which she will continue, and will use a tapering steroid schedule after discharge. Objective - Vital Signs/Intake and Output Vital Signs (last 24 hours): Temp Pulse Resp BP Pulse Ox 98.2 F 93 H 18 145/87 96 12/20/16 08:00 12/20/16 08:23 12/20/16 08:00 12/20/16 08:23 12/20/16 08:00 Intake and Output: 12/19/16 12/20/16 23:59 11:59 Intake Total 1100 Balance 1100 - Medications Medications: Current Medications Acetaminophen (Tylenol 325mg Tab) 650 mg PO Q6 PRN PRN Reason: Fever >100.4 F Albuterol Sulfate (Albuterol 0.083% Inhal Radha (2.5 Mg/3 Ml) Ud) 2.5 mg INH RQ4 PRN PRN Reason: Shortness of Breath Last Admin: 12/17/16 22:59 Dose: 2.5 mg Albuterol/Ipratropium (Duoneb 3 Mg/0.5 Mg (3 Ml) Ud) 3 ml INH RQ6 PRN PRN Reason: Shortness of Breath Last Admin: 12/20/16 05:10 Dose: 3 ml Alprazolam (Xanax) 0.25 mg PO HS [facility] Stop: 12/24/16 20:49 Last Admin: 12/19/16 21:33 Dose: 0.25 mg Aspirin (Ecotrin) 81 mg PO DAILY [facility] Last Admin: 12/20/16 08:16 Dose: 81 mg Azithromycin (Zithromax) 250 mg PO DAILY [facility] Stop: 12/21/16 09:01 Last Admin: 12/20/16 08:16 Dose: 250 mg Bismuth Subsalicylate (Pepto Bismol) 262 mg PO Q4 PRN PRN Reason: GI upset, gas Last Admin: 12/18/16 15:32 Dose: 262 mg Dextrose (Dextrose 50% Inj) 0 ml IV STAT PRN; Protocol PRN Reason: Hyglycemia Protocol Dextrose (Glutose 15) 0 gm PO ONCE PRN; Protocol PRN Reason: Hypoglycemia Protocol Enoxaparin Sodium (Lovenox) 40 mg SC DAILY [facility] PRN Reason: Protocol Last Admin: 12/20/16 08:27 Dose: Not Given Gabapentin (Neurontin) 100 mg PO TID [facility] Last Admin: 12/20/16 08:18 Dose: 100 mg Glucagon (Glucagen Diagnostic Kit) 0 mg IM STAT PRN; Protocol PRN Reason: Hypoglycemia Protocol Guaifenesin/Dextromethorphan (Mucinex-Dm 600-30 Mg) 2 tab PO Q12 [facility] Last Admin: 12/20/16 08:21 Dose: 2 tab Hydrochlorothiazide (Microzide) 12.5 mg PO DAILY [facility] Last Admin: 12/20/16 08:20 Dose: 12.5 mg Ibuprofen (Motrin Tab) 600 mg PO Q8 PRN PRN Reason: Pain, moderate (4-7) Insulin Human Regular (Humulin R) 0 units SC ACHS [facility] PRN Reason: Protocol Last Admin: 12/20/16 06:33 Dose: Not Given Levofloxacin (Levaquin) 250 mg PO DAILY [facility] Last Admin: 12/20/16 08:20 Dose: 250 mg Losartan Potassium (Cozaar) 100 mg PO DAILY [facility] Last Admin: 12/20/16 08:15 Dose: 100 mg Metformin HCl (Glucophage) 850 mg PO BID [facility] Last Admin: 12/20/16 08:16 Dose: 850 mg Metoprolol Succinate (Toprol Xl) 25 mg PO DAILY [facility] Last Admin: 12/20/16 08:23 Dose: 25 mg Montelukast Sodium (Singulair) 10 mg PO HS [facility] Last Admin: 12/19/16 21:31 Dose: 10 mg Spironolactone (Aldactone) 25 mg PO DAILY [facility] Last Admin: 12/20/16 08:15 Dose: 25 mg - Labs Labs: PT 10.4 Seconds (9.8-13.1) 12/17/16 06:44 INR 0.9 (0.9-1.2) 12/17/16 06:44 APTT 26.7 Seconds (25.6-37.1) 12/17/16 06:44 Assessment and Plan (1) Asthma with COPD with exacerbation Status: Acute (2) Sinusitis nasal Status: Acute (3) Posterior rhinorrhea Status: Acute (4) Diabetes mellitus Status: Chronic
--- NOTE | 2016-12-20 09:53 | CP.PCM.DIS ---
Provider - Provider Date of Admission: 12/17/16 08:07 Attending physician: Claudio Segovia MD Primary care physician: Claudio Segovia MD Consults: Dr. Thompson-Pulmonology Time Spent in preparation of Discharge (in minutes): 30 Diagnosis - Discharge Diagnosis (1) Asthma with COPD with exacerbation Status: Acute Priority: Medium Hospital Course - Lab Results Lab Results: Micro Results 12/18/16 11:44 Sputum Gram Stain - Final 12/18/16 11:44 Sputum Sputum Culture - Preliminary No growth. Most Recent Lab Values WBC 6.3 K/uL (4.8-10.8) 12/17/16 06:44 RBC 4.49 Mil/uL (3.80-5.20) 12/17/16 06:44 Hgb 12.5 g/dL (12.0-16.0) 12/17/16 06:44 Hct 37.0 % (34.0-47.0) 12/17/16 06:44 MCV 82.4 fl (81.0-99.0) 12/17/16 06:44 MCH 27.8 pg (27.0-31.0) 12/17/16 06:44 MCHC 33.7 g/dL (33.0-37.0) 12/17/16 06:44 RDW 13.1 % (11.5-14.5) 12/17/16 06:44 Plt Count 228 K/uL (130-400) 12/17/16 06:44 MPV 8.1 fl (7.2-11.7) 12/17/16 06:44 Neut % (Auto) 68.5 % (50.0-75.0) 12/17/16 06:44 Lymph % (Auto) 19.8 % (20.0-40.0) L 12/17/16 06:44 [place] % (Auto) 8.8 % (0.0-10.0) 12/17/16 06:44 Eos % (Auto) 2.3 % (0.0-4.0) 12/17/16 06:44 Baso % (Auto) 0.6 % (0.0-2.0) 12/17/16 06:44 Neut # 4.3 K/uL (1.8-7.0) 12/17/16 06:44 Lymph # 1.2 K/uL (1.0-4.3) 12/17/16 06:44 [place] # 0.6 K/uL (0.0-0.8) 12/17/16 06:44 Eos # 0.1 K/uL (0.0-0.7) 12/17/16 06:44 Baso # 0.0 K/uL (0.0-0.2) 12/17/16 06:44 PT 10.4 Seconds (9.8-13.1) 12/17/16 06:44 INR 0.9 (0.9-1.2) 12/17/16 06:44 APTT 26.7 Seconds (25.6-37.1) 12/17/16 06:44 Sodium 135 mmol/l (132-148) 12/17/16 06:44 Potassium 4.0 MMOL/L (3.6-5.0) 12/17/16 06:44 Chloride 98 mmol/L (98-107) 12/17/16 06:44 Carbon Dioxide 27 mmol/L (22-30) 12/17/16 06:44 Anion Gap 14 (10-20) 12/17/16 06:44 BUN 27 mg/dl (7-17) H 12/17/16 06:44 Creatinine 0.9 mg/dL (0.7-1.2) 12/17/16 06:44 Est GFR ( Amer) > 60 12/17/16 06:44 Est GFR (Non-Af Amer) > 60 12/17/16 06:44 POC Glucose (mg/dL) 131 mg/dL (65-110) H 12/20/16 05:18 Random Glucose 142 mg/dL (65-105) H 12/17/16 06:44 Calcium 9.1 mg/dL (8.4-10.2) 12/17/16 06:44 Total Bilirubin 0.6 mg/dl (0.2-1.3) 12/17/16 06:44 AST 27 U/L (14-36) 12/17/16 06:44 ALT 34 U/L (9-52) 12/17/16 06:44 Alkaline Phosphatase 62 U/L (38-126) 12/17/16 06:44 Troponin I < 0.0120 ng/mL (0.00-0.120) 12/17/16 14:45 NT-Pro-B Natriuret Pep 55.1 pg/ml (0-900) 12/17/16 06:44 Total Protein 7.1 G/DL (6.3-8.2) 12/17/16 06:44 Albumin 4.0 g/dL (3.5-5.0) 12/17/16 06:44 Globulin 3.1 gm/dL (2.2-3.9) 12/17/16 06:44 Albumin/Globulin Ratio 1.3 (1.0-2.1) 12/17/16 06:44 Urine Color Radha (YELLOW) 12/17/16 07:29 Urine Clarity Slighty-cloudy (Clear) 12/17/16 07:29 Urine pH 5.0 (5.0-8.0) 12/17/16 07:29 Ur Specific [place] 1.016 (1.003-1.030) 12/17/16 07:29 Urine Protein Negative mg/dL (NEGATIVE) 12/17/16 07:29 Urine Glucose (UA) Neg mg/dL (Normal) 12/17/16 07:29 Urine Ketones Negative mg/dL (NEGATIVE) 12/17/16 07:29 Urine Blood Negative (NEGATIVE) 12/17/16 07:29 Urine Nitrate Negative (NEGATIVE) 12/17/16 07:29 Urine Bilirubin Negative (NEGATIVE) 12/17/16 07:29 Urine Urobilinogen 0.2-1.0 mg/dL (0.2-1.0) 12/17/16 07:29 Ur Leukocyte Esterase Neg [place]/uL (Negative) 12/17/16 07:29 Urine RBC (Auto) 2 /hpf (0-3) 12/17/16 07:29 Urine Microscopic WBC 1 /hpf (0-5) 12/17/16 07:29 Ur Squamous Epith Cells 2 /hpf (0-5) 12/17/16 07:29 Hyaline Casts 3-5 /hpf (0-2) H 12/17/16 07:29 - Hospital Course Hospital Course: 71 yr old F admitted for worsening SOB and persistent cough found to have COPD exacerbation with tachycardia, with PMHx COPD (dx 2 wks ago), Asthma , HTN, NIDDM, Peripheral Neuropathy and Anxiety. Patient was treated with duoneb tx, corticosteroids and Azithromycin. Pulmonology was consulted. Patient improved, symptoms resolved and she was discharged to resume home meds and with Montelukast 10mg PO QHS, Prednisone taper x 5 days. - Date & Time of H&P Date of H&P: 12/17/16 Time of H&P: 09:52 Discharge Exam - Head Exam Head Exam: ATRAUMATIC, NORMOCEPHALIC - Eye Exam Eye Exam: EOMI, PERRL - ENT Exam ENT Exam: Mucous Membranes Moist - Neck Exam Neck exam: Lymphadenopathy - Respiratory Exam Respiratory Exam: Clear to PA & Lateral, NORMAL BREATHING PATTERN. absent: Rhonchi, Wheezes, Respiratory Distress - Cardiovascular Exam Cardiovascular Exam: REGULAR RHYTHM, +S1, +S2 - GI/Abdominal Exam GI & Abdominal Exam: Normal Bowel Sounds, Soft. absent: Distended, Tenderness - Extremities Exam Extremities exam: full ROM (no pedal edema) - Back Exam Back exam: absent: CVA tenderness (L), CVA tenderness (R) - Neurological Exam Neurological exam: Alert, CN II-XII Intact, Oriented x3 - Psychiatric Exam Psychiatric exam: Normal Affect, Normal Mood - Skin Skin Exam: Dry, Intact, Normal Color, Warm Discharge Plan - Discharge Medications Prescriptions: Montelukast [Singulair] 10 mg PO HS #30 tab predniSONE [Prednisone] 10 mg PO ONCE #1 tab Prednisone 30 mg PO ONCE #1 tab.ds.pk predniSONE [Prednisone] 40 mg PO ONCE #1 tab predniSONE [Prednisone] 20 mg PO ONCE #1 tab predniSONE [predniSONE Tab] 5 mg PO ONCE #1 tab - Follow Up Plan Condition: FAIR Disposition: HOME/ ROUTINE Instructions: COPD (Chronic Obstructive Pulmonary Disease) (DC), How Your Lungs Work (DC), Chronic Lung Disease and Infection Prevention (DC) Additional Instructions: -Followup appt with Dr. Segovia at [facility]- January 12, 2017 at 10:40am -Make follow up jazzy with Dr. Thompson -take medications as prescribed Referrals: Claudio Segovia MD [Primary Care Provider] -
[2016-12-20 12:43] VITALS: BP 116/69; PULSE 84; TEMP 98.3; O2SAT 97
== END 2016-12-20 13:50 | disposition home or self-care (01) | DRG 192 ==
LOC: H.ER 05:32 → H.ERHOLD 08:07 → OBSVTOIN 08:07 → H.TEL 15:12
PROVIDERS: ADMIT Family Medicine; ATTEND Family Medicine
DX: J44.1 Chronic obstructive pulmonary disease with (acute) exacerbation (principal); E11.42 Type 2 diabetes mellitus with diabetic polyneuropathy; J06.9 Acute upper respiratory infection, unspecified; I10 Essential (primary) hypertension; J32.9 Chronic sinusitis, unspecified; Z88.0 Allergy status to penicillin; Z91.041 Radiographic dye allergy status; Z88.2 Allergy status to sulfonamides; J34.89 Other specified disorders of nose and nasal sinuses; R00.0 Tachycardia, unspecified; T48.6X5A Adverse effect of antiasthmatics, initial encounter; J45.909 Unspecified asthma, uncomplicated; M19.90 Unspecified osteoarthritis, unspecified site; F41.9 Anxiety disorder, unspecified; Z87.891 Personal history of nicotine dependence

== ENCOUNTER 2017-02-18 12:12 | Emergency (ER) | payer MEDICARE, OTHER ==
[2017-02-18 12:13] VITALS: BMI 29.0
[2017-02-18 12:28] VITALS: RESP 18; TEMP 98
[2017-02-18] MEDS ORDERED: Iohexol 240 (50 ml) PO ONE (12:49)
[2017-02-18 13:16] LABS: BASO % 0.4 % (0.0-2.0); EOS % 0.3 % (0.0-4.0); HEMOGLOBIN 13.2 g/dL (12.0-16.0); LYMPH # 1.4 K/uL (1.0-4.3); LYMPH % 11.1 % (20.0-40.0); MEAN CELL VOLUME 82.7 fl (81.0-99.0); MEAN CORPUSCULAR HEMOGLOBIN 27.8 pg (27.0-31.0); MEAN CORPUSCULAR HGB CONC 33.6 g/dL (33.0-37.0); MONO # 1.1 K/uL (0.0-0.8); MONO % 9.3 % (0.0-10.0); NEUT # 9.6 K/uL (1.8-7.0); NEUT % 78.9 % (50.0-75.0); RBC 4.75 Mil/uL (3.80-5.20); RED CELL DISTRIBUTION WIDTH 13.6 % (11.5-14.5)
[2017-02-18 13:17] LABS: WHITE BLOOD COUNT 12.2 K/uL (4.8-10.8)
[2017-02-18 13:23] LABS: SQUAMOUS EPITHIAL 23 /hpf (0-5); URINE BACTERIA RARE (<OCC); URINE BILIRUBIN NEGATIVE (NEGATIVE); URINE BLOOD NEGATIVE (NEGATIVE); URINE CLARITY CLOUDY (Clear); URINE COLOR YELLOW (YELLOW); URINE GLUCOSE (UA) 50 mg/dL (Normal); URINE LEUKOCYTE ESTERASE MOD Leu/uL (Negative); URINE NITRATE NEGATIVE (NEGATIVE); URINE PROTEIN 30 mg/dL (NEGATIVE); URINE UROBILINOGEN 0.2-1.0 mg/dL (0.2-1.0)
[2017-02-18] MEDS ORDERED: Iohexol 240 (50 ml) ONE (13:39)
[2017-02-18 13:47] LABS: ALB/GLOB RATIO 1.3 (1.0-2.1); ALBUMIN 4.5 g/dL (3.5-5.0); ALT/SGPT 36 U/L (9-52); AMYLASE 103 U/L (30-110); AST/SGOT 24 U/L (14-36); BLOOD UREA NITROGEN 23 mg/dl (7-17); CALCIUM 10.1 mg/dL (8.4-10.2); GFR AFRICAN-AMERICAN > 60; GFR NON-AFRICAN AMERICAN > 60; LIPASE 74 U/L (23-300)
--- NOTE | 2017-02-18 14:28 | ED PDOC ---
HPI: Abdomen Time Seen by Provider: 02/18/17 12:23 Chief Complaint (Nursing): GI Problem History Per: Patient History/Exam Limitations: no limitations Onset/Duration Of Symptoms: Gradual (today) Current Symptoms Are (Timing): Still Present Severity: Moderate Location Of Pain/Discomfort: Diffuse Quality Of Discomfort: Dull, Cramping Associated Symptoms: denies: Fever, Chills, Nausea, Vomiting, Diarrhea, Back Pain, Chest Pain, Constipation, Urinary Symptoms Exacerbating Factors: None Alleviating Factors: None Last Bowel Movement: Today Additional History Per: Patient Additional Complaint(s): episode of brbpr. diffuse abd pain. Past Medical History Reviewed: Historical Data, Nursing Documentation, Vital Signs Vital Signs: Last Vital Signs Temp 98 F 02/18/17 12:26 Pulse 102 H 02/18/17 12:26 Resp 18 02/18/17 12:26 BP 131/84 02/18/17 12:26 Pulse Ox 100 02/18/17 12:26 - Medical History PMH: Arthritis, Asthma (Bronchial), COPD, Diabetes, HTN - Surgical History Surgical History: Tonsillectomy - Family History Family History: States: Unknown Family Hx - Living Arrangements Living Arrangements: With Family - Social History Current smoker - smoking cessation education provided: No - Home Medications Home Medications: Ambulatory Orders Medication Instructions Recorded ALPRAZolam [Xanax] 0.25 mg PO DAILY 12/17/16 Albuterol 0.083% [Albuterol 0.083% 1 inh NEB Q6H PRN 12/17/16 Inhal Radha (2.5 mg/3 ml) UD] Albuterol Sulfate [Proair Hfa] 1 puff INH DAILY PRN 12/17/16 Aspirin [Ecotrin] 81 mg PO DAILY 12/17/16 Budesonide/Formoterol Fumarate 2 puff INH BID 12/17/16 [Symbicort 80-4.5 Mcg Inhaler] Losartan/Hydrochlorothiazide 1 tab PO DAILY 12/17/16 [Losartan-Hctz 100-12.5 mg Tab] Metoprolol Succinate [Toprol XL] 25 mg PO DAILY 12/17/16 Spironolactone [Aldactone] 25 mg PO DAILY 12/17/16 metFORMIN [glucOPHAGE] 850 mg PO BID 12/17/16 Montelukast [Singulair] 10 mg PO HS #30 tab 12/20/16 Prednisone 30 mg PO ONCE #1 tab.ds.pk 12/20/16 predniSONE [Prednisone] 10 mg PO ONCE #1 tab 12/20/16 predniSONE [Prednisone] 20 mg PO ONCE #1 tab 12/20/16 predniSONE [Prednisone] 40 mg PO ONCE #1 tab 12/20/16 predniSONE [predniSONE Tab] 5 mg PO ONCE #1 tab 12/20/16 - Allergies Allergies/Adverse Reactions: Allergies Allergy/AdvReac Type Severity Reaction Status Date / Time iodine Allergy RASH Verified 12/17/16 05:40 Penicillins Allergy RASH Verified 12/17/16 05:40 Sulfa (Sulfonamide Allergy RASH Verified 12/17/16 05:40 Antibiotics) Review of Systems ROS Statement: Except As Marked, All Systems Reviewed And Found Negative Constitutional: Negative for: Fever, Chills Cardiovascular: Negative for: Chest Pain, Palpitations Respiratory: Negative for: Cough, Shortness of Breath Gastrointestinal: Positive for: Hematochezia. Negative for: Nausea, Vomiting, Abdominal Pain, Diarrhea, Constipation, Melena, Rectal Pain Genitourinary Female: Negative for: Dysuria Musculoskeletal: Negative for: Neck Pain Neurological: Negative for: Weakness, Numbness Physical Exam - Reviewed Nursing Documentation Reviewed: Yes Vital Signs Reviewed: Yes - Physical Exam Appears: Positive for: Uncomfortable Head Exam: Positive for: ATRAUMATIC, NORMAL INSPECTION, NORMOCEPHALIC Eye Exam: Positive for: Normal appearance, EOMI, PERRL Neck: Positive for: Normal, Painless ROM, Supple Cardiovascular/Chest: Positive for: Regular Rate, Rhythm, Chest Non Tender. Negative for: Edema, Gallop, Murmur, Bradycardia, Tachycardia Respiratory: Positive for: Normal Breath Sounds. Negative for: Decreased Breath Sounds, Accessory Muscle Use, Crackles, Rales, Rhonchi, Stridor, Wheezing Gastrointestinal/Abdominal: Positive for: Normal Exam, Bowel Sounds, Soft. Negative for: Tenderness Back: Positive for: Normal Inspection. Negative for: L CVA Tenderness Rectal: Positive for: Rectal Tone Is: (nml), Stool Is Heme: (neg), Other ( chperoned by nurse denita). Negative for: Hemorrhoids, Mass, Tenderness Neurologic/Psych: Positive for: Alert, hospital chaplain II-XII, Oriented. Negative for: Motor/Sensory Deficits - Laboratory Results Result Diagrams: 02/18/17 13:00 02/18/17 13:00 - ECG ECG: Positive for: Interpreted By Me ECG Rhythm: Positive for: Normal QRS, Normal ST Segment, Sinus Rhythm. Negative for: ST/T Changes Interpretation Of Abn EKG: rate of 95 no evidence of ischemia O2 Sat by Pulse Oximetry: 100 Pulse Ox Interpretation: Normal Disposition - Clinical Impression Clinical Impression: Abdominal pain - Patient ED Disposition Is Patient to be Admitted: Transfer of Care Counseled Patient/Family Regarding: Studies Performed, Diagnosis - Disposition Disposition Time: 15:00 Condition: STABLE Patient Signed Over To: Kelvin Tinsley
--- NOTE | 2017-02-18 15:19 | CT ---
PROCEDURE: CT Abdomen and Pelvis without intravenous contrast HISTORY: Rectal bleeding and left lower quadrant abdominal pain COMPARISON: 09/02/2010 TECHNIQUE: Unenhanced study. Neither oral nor intravenous contrast administered. Radiation dose: Total exam DLP = 1012.98 mGy-cm. This CT exam was performed using one or more of the following dose reduction techniques: Automated exposure control, adjustment of the mA and/or kV according to patient size, and/or use of iterative reconstruction technique. FINDINGS: LOWER THORAX: Unremarkable. LIVER: Unremarkable. No gross lesion or ductal dilatation. GALLBLADDER AND BILE DUCTS: Cholelithiasis without CT evidence of acute cholecystitis. PANCREAS: Unremarkable. No gross lesion or ductal dilatation. SPLEEN: Unremarkable. ADRENALS: Unremarkable. No mass. KIDNEYS AND URETERS: Unremarkable. No hydronephrosis. No solid mass. Incidental finding(s): Nonobstructing 2 mm calculus lower pole left kidney. VASCULATURE: Unremarkable. No aortic aneurysm. BOWEL: Diverticulosis without an acute inflammatory component or other associated pathologic process. APPENDIX: Unremarkable. Normal appendix. PERITONEUM: Unremarkable. No free fluid. No free air. LYMPH NODES: Unremarkable. No enlarged lymph nodes. BLADDER: Unremarkable. REPRODUCTIVE: Unremarkable. BONES: No acute fracture. OTHER FINDINGS: None. IMPRESSION: Cholelithiasis without CT evidence of acute cholecystitis. No acute findings related to/accounting for the clinical presentation.
--- NOTE | 2017-02-18 15:38 | CARD ---
APPROVED REPORT EKG Measurement Heart [id number] PA [id number] <Conclusion> Normal sinus rhythm Normal ECG
--- NOTE | 2017-02-18 15:46 | ED PDOC ---
- Laboratory Results Result Diagrams: 02/18/17 13:00 02/18/17 13:00 Interpretation Of Abn Labs: 12.2 wbc; urine with squam - ECG O2 Sat by Pulse Oximetry: 100 Pulse Ox Interpretation: Normal - Progress ED Course And Treament: 1545: Stable. Took over care from Dr. Porter. Fu on labs and imaging. Abd pain and blood i stool. Hemocult neg per Dr. Porter. 1634: Stable. AAOx3. Pain free. Will get US of RUQ to eval GB. Has stones. WBC mild elevation. 1948: Stable. AAOx3. Pain free. Tolerated PO. Fu with pcp. Disposition - Clinical Impression Clinical Impression: Abdominal pain, Gallstone - POA Present On Arrival: None - Disposition Referrals: [facility] [Outside] - 02/21/17 Disposition: Routine/Home Disposition Time: 19:50 Condition: STABLE Additional Instructions: Return if not better in 3 days. Prescriptions: Famotidine [Pepcid] 20 mg PO DAILY PRN #6 tab PRN Reason: Pain Ibuprofen [Motrin] 600 mg PO TID 7 Days Instructions: Gallstones (ED), Abdominal Pain (ED) Forms: [employer] (French)
[2017-02-18 16:00] VITALS: BP 126/80; PULSE 78
[2017-02-18 16:35] VITALS: O2SAT 100
--- NOTE | 2017-02-18 20:05 | US ---
EXAM: US Abdomen Limited, Right Upper Quadrant CLINICAL HISTORY: 71 years old, female; Pain; Abdominal pain; Epigastric; Additional info: Ruq pain; Gb eval TECHNIQUE: Real-time ultrasound of the right upper quadrant with image documentation. COMPARISON: CT abdomen and pelvis 02/18/17 Exam Date/Time: 02/18/2017 4:39 PM FINDINGS: Liver: No focal abnormalities are seen in the liver. There is hepatopedal flow in the main portal vein. Gallbladder: Gallbladder is partially distended. There is a small amount of sludge. There is no wall thickening. There are 2 small non-shadowing nondependent foci suggesting polyps. There are very small shadowing foci in the dependent gallbladder. Common bile duct: Common bile duct measures 4.2 mm in diameter. Pancreas: Pancreas is partially obscured by bowel gas. Right kidney: Right kidney is unremarkable. Aorta: Visualized portions of the aorta and inferior vena cava are unremarkable. IMPRESSION: Small shadowing gallstones; probable gallbladder polyps Patient was not tender over the gallbladder
== END 2017-02-18 20:15 | disposition home or self-care (01) ==
LOC: H.ER 12:12
DX: R10.9 Unspecified abdominal pain (principal); I10 Essential (primary) hypertension; E11.9 Type 2 diabetes mellitus without complications; J44.9 Chronic obstructive pulmonary disease, unspecified; M19.90 Unspecified osteoarthritis, unspecified site
CPT/HCPCS: 74176; 76705; 80053; 81003; 82150; 82948; 83690; 85025; 93005; 99284; Q9966

== ENCOUNTER 2018-01-25 21:32 | Emergency (ER) | payer MEDICARE ==
[2018-01-25 21:32] VITALS: BMI 29.0
[2018-01-25 21:45] VITALS: BP 153/75; PULSE 106; RESP 16; TEMP 98; O2SAT 98
--- NOTE | 2018-01-25 22:05 | ED PDOC ---
Lower Extremity Pain/Injury Time Seen by Provider: 01/25/18 21:55 Chief Complaint (Nursing): Lower Extremity Problem/Injury Chief Complaint (Provider): left ankle pain History Per: Patient Additional Complaint(s): 72-year-old female presents with pain and swelling to right ankle that started earlier today. She denies any trauma or injury. Patient states she had similar symptoms several years back and was given cortisone shot for symptoms. She took 2 Aleve earlier which did not help the pain. Patient states in the past she was seen by Dr. Borjas for same symptoms. PMD: Dr. Claudio Segovia Past Medical History Reviewed: Historical Data, Nursing Documentation, Vital Signs Vital Signs: Last Vital Signs Temp 98.0 F 01/25/18 21:42 Pulse 106 H 01/25/18 21:42 Resp 16 01/25/18 21:42 BP 153/75 H 01/25/18 21:42 Pulse Ox 98 01/25/18 21:42 - Medical History PMH: Arthritis, Asthma (Bronchial), Colonic Polyps, COPD, Diabetes, Gall Bladder Disease, HTN - Surgical History Surgical History: Tonsillectomy - Family History Family History: States: No Known Family Hx - Living Arrangements Living Arrangements: With Family - Social History Current smoker - smoking cessation education provided: No Alcohol: None Drugs: Denies - Home Medications Home Medications: Ambulatory Orders Medication Instructions Recorded ALPRAZolam [Xanax] 0.25 mg PO DAILY 12/17/16 Budesonide/Formoterol Fumarate 2 puff INH BID 12/17/16 [Symbicort 80-4.5 Mcg Inhaler] Losartan/Hydrochlorothiazide 1 tab PO DAILY 12/17/16 [Losartan-Hctz 100-12.5 mg Tab] Metoprolol Succinate XL [Toprol XL] 25 mg PO DAILY 12/17/16 Spironolactone [Aldactone] 25 mg PO DAILY 12/17/16 metFORMIN [glucOPHAGE] 850 mg PO BID 12/17/16 Famotidine [Pepcid] 20 mg PO DAILY PRN #6 tab 02/18/17 Ibuprofen [Motrin] 600 mg PO TID 7 Days tab 02/18/17 Docusate [Colace] 100 mg PO BID #30 cap 03/06/17 Levofloxacin 250 mg PO DAILY #10 tablet 03/06/17 Metronidazole [Flagyl] 500 mg PO Q8 #30 tab 03/06/17 - Allergies Allergies/Adverse Reactions: Allergies Allergy/AdvReac Type Severity Reaction Status Date / Time iodine Allergy RASH Verified 12/17/16 05:40 iohexol [From Omnipaque] Allergy Verified 03/06/17 15:43 Penicillins Allergy RASH Verified 12/17/16 05:40 Sulfa (Sulfonamide Allergy RASH Verified 12/17/16 05:40 Antibiotics) Wells Criteria for PE - Wells Criteria for Pulmonary Embolism Clinical Signs and Symptoms of DVT: No P.E is #1 Diagnosis, or Equally Likely: No Heart Rate >100: No Immobilization at least 3 days;Surgery previous 4 weeks: No Previous, objectively diagnosed PE or DVT: No Hemoptysis: No Malignancy w/treatment within 6 months, or palliative: No Total Score: 0 Review of Systems ROS Statement: Except As Marked, All Systems Reviewed And Found Negative Musculoskeletal: Positive for: Other (right foot and ankle pain) Physical Exam - Reviewed Nursing Documentation Reviewed: Yes Vital Signs Reviewed: Yes - Physical Exam Appears: Positive for: Well, Non-toxic, No Acute Distress Skin: Positive for: Normal Color. Negative for: Rash Eye Exam: Positive for: Normal appearance Neck: Positive for: Normal Extremity: Positive for: Other (Swelling and tenderness noted diffusely to right foot and ankle region, no bony deformity noted, no erythema or warmth, Achilles tendon intact, no calf swelling or tenderness) Neurologic/Psych: Positive for: Alert, Oriented - ECG O2 Sat by Pulse Oximetry: 98 Pulse Ox Interpretation: Normal - Other Rad Right foot and ankle x-ray X-Ray: Interpreted by Me, Viewed By Me X-Ray Interpretation: arthritic changes, no acute fx, no dis Medical Decision Making Medical Decision Makin72 y/o F with right foot and ankle pain Plan: IM toradol 30 mg PO tylenol 975 mg X-ray right ankle and foot Podiatry consult - Dr. Miranda, podiatry resident at bedside to see patient. As per Dr. Miranda, CBC ordered. Disposition - Clinical Impression Clinical Impression: Joint pain of ankle and foot - Patient ED Disposition Is Patient to be Admitted: Transfer of Care - Disposition Disposition: Transfer of Care Disposition Time: 23:56 Condition: FAIR Forms: [employer] (Martiniquais) Patient Signed Over To: Jonna Richardson Handoff Comments: Signed out pending diagnostic testing results and final dispo
--- NOTE | 2018-01-25 22:38 | CP.PCM.CON ---
History of Present Illness - History of Present Illness History of Present Illness: Podiatry Consult Note for Dr. Borjas: 72 yo female,with PMHx of DM, Asthma, COPD, HTN, presents to the ED with right lateral ankle pain. She states that the pain started earlier today and has progressed over the past couple of hours. She denies any trauma or injury to the area. She notes that something like this has happened in the past she has seen Dr. Borjas in his office who treated her with a cortisone injection. Today she ambulates in sneakers but notes that over the past couple of days she has continuously worn flip-flops which rub over the outside of her right ankle where the current swelling presents. She denies any other pedal complaints at this time. Patient accompanied by her . Patient denies N/V/F/SOB/CP/C. PMHx: Diabetes, Asthma, COPD, HTN PSHx: Tonsillectomy FHx: Denies SH: Denies any drugs, alcohol, or tobacco use ALL: Penicillin, Sulfa, Iodine Review of Systems - Review of Systems Review of Systems: As per HPI Past Patient History - Past Medical History & Family History Past Medical History?: Yes - Past Social History Alcohol: None Drugs: Denies - CARDIAC Hx Hypertension: Yes - PULMONARY Hx Asthma: Yes (Bronchial) Hx Chronic Obstructive Pulmonary Disease (COPD): Yes - NEUROLOGICAL Hx Neurological Disorder: Yes Other/Comment: Neuropathy - ENDOCRINE/METABOLIC Hx Diabetes Mellitus Type 2: Yes - INTEGUMENTARY Hx Dermatological Problems: No - MUSCULOSKELETAL/RHEUMATOLOGICAL Hx Arthritis: Yes - GASTROINTESTINAL Hx Gall Bladder Disease: Yes - GENITOURINARY/GYNECOLOGICAL Hx Genitourinary Disorders: Yes Other/Comment: Hx Uterine fibroids - PSYCHIATRIC Hx Substance Use: No - SURGICAL HISTORY Hx Tonsillectomy: Yes - ANESTHESIA Hx Anesthesia: Yes Hx Anesthesia Reactions: No Meds Allergies/Adverse Reactions: Allergies Allergy/AdvReac Type Severity Reaction Status Date / Time iodine Allergy RASH Verified 12/17/16 05:40 iohexol [From Omnipaque] Allergy Verified 03/06/17 15:43 Penicillins Allergy RASH Verified 12/17/16 05:40 Sulfa (Sulfonamide Allergy RASH Verified 12/17/16 05:40 Antibiotics) Physical Exam - Constitutional Appears: Well, Non-toxic, No Acute Distress - Head Exam Head Exam: ATRAUMATIC, NORMOCEPHALIC - Extremities Exam Additional comments: Vascular: DP/PT pulses 2/4 b/l. CFT<3 seconds to all 10 digits. TG WNL bilaterally. Pedal hair present. Ortho: Pain upon palpation to right lateral malleolus. Diffuse edema noted circumfrentially to right lateral malleolus. MMT 5/5 bilaterally. Plantarflexion, dorsiflexion, inversion, and eversion of RLE WNL. No pain present upon calf compression bilaterally. Neuro: Gross and protective sensation intact bilaterally. Derm: No open lesions, no erythema, no clinical signs of infection to right lower extremity - Neurological Exam Neurological exam: Alert, Oriented x3 - Psychiatric Exam Psychiatric exam: Normal Affect, Normal Mood Results - Vital Signs Recent Vital Signs: Last Vital Signs Temp 98.0 F 01/25/18 21:42 Pulse 106 H 01/25/18 21:42 Resp 16 01/25/18 21:42 BP 153/75 H 01/25/18 21:42 Pulse Ox 98 01/25/18 22:06 - Labs Result Diagrams: 01/25/18 23:40 Assessment & Plan - Assessment and Plan (Free Text) Assessment: 72 yo female presents to the ED with right lateral ankle pain. Plan: Patient examined and evaluated with all questions and concerns addressed. Discussed in detail with Dr. Borjas Foot and ankle x-rays taken and reviewed with patient Labs and Vitals reviewed (01/26/18); Afebrile, absent leukocytosis JAQUELINE bandage applied to patients right foot Discussed modification in shoe gear and to discontinue the use of flip-flops until edema/pain resolves Discussed the signs of local and systemic infection, if any of these signs occur patient was advised to seek medical attention Patient expressed verbal understanding Patient to f/u in Dr. Borjas's office within one week Thank you for the consult. - Date & Time Date: 01/26/18
[2018-01-25 23:54] LABS: BASO # 0.1 K/uL (0.0-0.2); BASO % 0.9 % (0.0-2.0); EOS # 0.2 K/uL (0.0-0.7); EOS % 2.3 % (0.0-4.0); HEMOGLOBIN 13.1 g/dL (12.0-16.0); LYMPH # 1.7 K/uL (1.0-4.3); LYMPH % 17.3 % (20.0-40.0); MEAN CELL VOLUME 82.8 fl (81.0-99.0); MEAN CORPUSCULAR HGB CONC 33.8 g/dL (33.0-37.0); MEAN PLATELET VOLUME 7.7 fl (7.2-11.7); MONO # 0.9 K/uL (0.0-0.8); MONO % 9.2 % (0.0-10.0); NEUT # 7.1 K/uL (1.8-7.0); NEUT % 70.3 % (50.0-75.0); RBC 4.69 Mil/uL (3.80-5.20); RED CELL DISTRIBUTION WIDTH 13.2 % (11.5-14.5); WHITE BLOOD COUNT 10.1 K/uL (4.8-10.8)
--- NOTE | 2018-01-26 00:30 | ED PDOC ---
- Laboratory Results Result Diagrams: 01/25/18 23:40 - ECG O2 Sat by Pulse Oximetry: 98 - Progress ED Course And Treament: Case endorsed to contract technical writer from [facility] pending podiatry eval Patient evaluated by Dr. Schwarz, Podiatry resident on-call; JAQUELINE wrap applied Advised follow up with Dr. Borjas within one week Ice, elevation Return precautions given Disposition - Clinical Impression Clinical Impression: Joint pain of ankle and foot - POA Present On Arrival: None - Disposition Referrals: Marlon Borjas MD [Staff Provider] - Disposition: Routine/Home Disposition Time: 00:31 Condition: STABLE Additional Instructions: Follow up with Dr. Borjas within one week Instructions: Joint Pain Forms: [employer] (Japanese)
--- NOTE | 2018-01-26 11:02 | RAD ---
Date of service: 01/25/2018 PROCEDURE: Right Ankle Radiographs. HISTORY: pain COMPARISON: None FINDINGS: BONES: No acute fracture or destructive bony lesion identified. JOINTS: Normal. No osteoarthritis. Ankle mortise maintained. Talar dome intact SOFT TISSUES: Moderate lateral malleolar soft tissue edema identified. OTHER FINDINGS: None. IMPRESSION: No acute fracture or dislocation in right ankle radiographs. Moderate lateral malleolar soft tissue edema noted.
--- NOTE | 2018-01-26 11:40 | RAD ---
Date of service: 01/25/2018 PROCEDURE: Right Foot Radiographs. HISTORY: pain COMPARISON: None. FINDINGS: BONES: No acute fracture or destructive bony lesion identified. JOINTS: Degenerative cortical sclerosis is appreciated throughout the interphalangeal joints diffusely as well as the 1st metatarsal phalangeal joint. Similar degenerative changes seen throughout the tarsal tarsal and tarsal metatarsal articulations. Advanced degenerative changes seen at the calcaneal cuboidal joint where subchondral cyst formation is seen in both sides of the joint accompanying osteophyte development and articular cortical sclerosis. Moderate to severe degenerative changes seen at the talonavicular joint. No subluxation or dislocation. SOFT TISSUES: Normal. OTHER FINDINGS: None. IMPRESSION: No acute fracture or dislocation. Degenerative changes are appreciated at the hindfoot greater than midfoot and forefoot joints as discussed above.
== END 2018-01-26 00:58 | disposition home or self-care (01) ==
LOC: H.ER 21:32
DX: M25.572 Pain in left ankle and joints of left foot (principal); E11.9 Type 2 diabetes mellitus without complications; I10 Essential (primary) hypertension; J44.9 Chronic obstructive pulmonary disease, unspecified; Z79.84 Long term (current) use of oral hypoglycemic drugs; Z88.0 Allergy status to penicillin
CPT/HCPCS: 73610; 73630; 85025; 96372; 99283; J1885

== ENCOUNTER 2018-10-01 10:24 | Emergency (ER) | payer MEDICARE, OTHER ==
[2018-10-01 10:36] VITALS: TEMP 97
[2018-10-01 10:37] VITALS: BMI 27.6
[2018-10-01] MEDS ORDERED: Albuterol-Ipratrop 3 mg / 0.5 (3 ml) UD IH STA (10:54)
--- NOTE | 2018-10-01 10:58 | ED PDOC ---
HPI: SOB/CHF/COPD Time Seen by Provider: 10/01/18 10:50 Chief Complaint (Nursing): Female Genitourinary History Per: Patient Onset/Duration Of Symptoms: Days (1) Current Symptoms Are (Timing): Better Current Respiratory Medications: See Home Med List Severity: Mild Associated Symptoms: denies: Fever, Productive Cough Additional Complaint(s): SOB, wheezing and nonproductive cough associated with post nasal drip. Denies fever. Improved with nebuliuzer at home. Also c/o dysuria. Denies fever, chills, back pain or abd pain Past Medical History Vital Signs: Last Vital Signs Temp 97 F L 10/01/18 10:35 Pulse 107 H 10/01/18 10:35 Resp 18 10/01/18 10:35 BP 161/88 H 10/01/18 10:35 Pulse Ox 95 10/01/18 10:35 - Medical History PMH: Arthritis, Asthma (Bronchial), Colonic Polyps, COPD, Diabetes, Diverticulitis, Gall Bladder Disease, HTN - Surgical History Surgical History: Tonsillectomy - Family History Family History: States: Unknown Family Hx - Home Medications Home Medications: Ambulatory Orders Medication Instructions Recorded ALPRAZolam [Xanax] 0.25 mg PO DAILY 12/17/16 Budesonide/Formoterol Fumarate 2 puff INH BID 12/17/16 [Symbicort 80-4.5 Mcg Inhaler] Losartan/Hydrochlorothiazide 1 tab PO DAILY 12/17/16 [Losartan-Hctz 100-12.5 mg Tab] Metoprolol Succinate XL [Toprol XL] 25 mg PO DAILY 12/17/16 Spironolactone [Aldactone] 25 mg PO DAILY 12/17/16 metFORMIN [glucOPHAGE] 850 mg PO BID 12/17/16 Famotidine [Pepcid] 20 mg PO DAILY PRN #6 tab 02/18/17 Ibuprofen [Motrin] 600 mg PO TID 7 Days tab 02/18/17 Docusate [Colace] 100 mg PO BID #30 cap 03/06/17 Levofloxacin 250 mg PO DAILY #10 tablet 03/06/17 Metronidazole [Flagyl] 500 mg PO Q8 #30 tab 03/06/17 Nitrofurantoin Monohyd/M-Cryst 100 mg PO BID #13 capsule 10/01/18 [Macrobid 100 mg Capsule] - Allergies Allergies/Adverse Reactions: Allergies Allergy/AdvReac Type Severity Reaction Status Date / Time iodine Allergy RASH Verified 12/17/16 05:40 iohexol [From Omnipaque] Allergy Verified 03/06/17 15:43 Penicillins Allergy RASH Verified 12/17/16 05:40 Sulfa (Sulfonamide Allergy RASH Verified 12/17/16 05:40 Antibiotics) Review of Systems ROS Statement: Except As Marked, All Systems Reviewed And Found Negative Respiratory: Positive for: Cough, Shortness of Breath, Wheezing Genitourinary Female: Positive for: Dysuria Physical Exam - Reviewed Nursing Documentation Reviewed: Yes Vital Signs Reviewed: Yes - Physical Exam Appears: Positive for: Non-toxic, No Acute Distress Head Exam: Positive for: ATRAUMATIC, NORMAL INSPECTION, NORMOCEPHALIC Skin: Positive for: Normal Color, Warm, DRY Eye Exam: Positive for: EOMI, Normal appearance, PERRL ENT: Positive for: Normal ENT Inspection Neck: Positive for: Normal, Painless ROM Cardiovascular/Chest: Positive for: Regular Rate, Rhythm Respiratory: Positive for: Wheezing (Mild end expiratory). Negative for: Respiratory Distress Gastrointestinal/Abdominal: Positive for: Normal Exam, Soft Back: Positive for: Normal Inspection Extremity: Positive for: Normal ROM Neurological/Psych: Positive for: Awake, Alert, Normal Tone - Laboratory Results Result Diagrams: 10/01/18 11:20 10/01/18 11:20 - ECG O2 Sat by Pulse Oximetry: 95 Medical Decision Making Medical Decision Making: Feels better, wishes to go home Disposition - Clinical Impression Clinical Impression: Urinary tract infection - Patient ED Disposition Is Patient to be Admitted: No Counseled Patient/Family Regarding: Studies Performed, Diagnosis, Need For Fol lowup, Rx Given - Disposition Referrals: Claudio Segovia MD [Primary Care Provider] - Disposition: Routine/Home Disposition Time: 13:52 Condition: FAIR Prescriptions: Nitrofurantoin Monohyd/M-Cryst [Macrobid 100 mg Capsule] 100 mg PO BID #13 capsule Instructions: Urinary Tract Infections in Adults Forms: [facility] ([place]ian)
[2018-10-01 11:37] LABS: BASO % 0.2 % (0.0-2.0); EOS # 0.1 K/uL (0.0-0.7); EOS % 0.7 % (0.0-4.0); LYMPH # 1.2 K/uL (1.0-4.3); LYMPH % 14.3 % (20.0-40.0); MEAN CELL VOLUME 83.7 fl (81.0-99.0); MEAN CORPUSCULAR HEMOGLOBIN 28.4 pg (27.0-31.0); MEAN CORPUSCULAR HGB CONC 33.9 g/dL (33.0-37.0); MEAN PLATELET VOLUME 7.7 fl (7.2-11.7); MONO # 0.6 K/uL (0.0-0.8); MONO % 7.7 % (0.0-10.0); NEUT # 6.3 K/uL (1.8-7.0); NEUT % 77.1 % (50.0-75.0); RBC 4.92 Mil/uL (3.80-5.20); RED CELL DISTRIBUTION WIDTH 13.4 % (11.5-14.5); WHITE BLOOD COUNT 8.2 K/uL (4.8-10.8)
[2018-10-01 11:39] LABS: ALB/GLOB RATIO 1.3 (1.0-2.1); ALBUMIN 4.3 g/dL (3.5-5.0); ALT/SGPT 25 U/L (9-52); AST/SGOT 30 U/L (14-36); BLOOD UREA NITROGEN 24 mg/dl (7-17); CALCIUM 10.1 mg/dL (8.4-10.2); GFR NON-AFRICAN AMERICAN > 60
--- NOTE | 2018-10-01 11:46 | RAD ---
Date of service: 10/01/2018 HISTORY: SOB COMPARISON: Comparison made with chest radiograph 12/17/2016 TECHNIQUE: Chest PA and lateral views FINDINGS: LUNGS: No active pulmonary disease. PLEURA: No significant pleural effusion identified. No pneumothorax apparent. CARDIOVASCULAR: The aorta is ectatic and uncoiled; rule out aneurysmal dilatation. Moderate aortic atherosclerotic calcification present. Normal cardiac size. No pulmonary vascular congestion. OSSEOUS STRUCTURES: No significant abnormalities. VISUALIZED UPPER ABDOMEN: Normal. OTHER FINDINGS: None. IMPRESSION: No active disease. The aorta is ectatic and uncoiled; rule out aneurysmal dilatation.
[2018-10-01 11:48] LABS: SQUAMOUS EPITHIAL 11 /hpf (0-5); URINE BACTERIA OCC (<OCC); URINE BILIRUBIN NEGATIVE (NEGATIVE); URINE BLOOD NEGATIVE (NEGATIVE); URINE CLARITY CLOUDY (Clear); URINE COLOR YELLOW (YELLOW); URINE GLUCOSE (UA) NEG (NEGATIVE); URINE LEUKOCYTE ESTERASE LARGE Leu/uL (Negative); URINE PROTEIN 30 mg/dL (NEGATIVE); URINE UROBILINOGEN 0.2-1.0 mg/dL (0.2-1.0)
[2018-10-01 12:10] VITALS: RESP 20
[2018-10-01 13:50] VITALS: BP 122/67
[2018-10-01 14:06] VITALS: PULSE 88; O2SAT 99
== END 2018-10-01 13:53 | disposition home or self-care (01) ==
LOC: H.ER 10:24 → SUPCPDRO 10:24 → H.ER 13:53
DX: N39.0 Urinary tract infection, site not specified (principal); E11.9 Type 2 diabetes mellitus without complications; I10 Essential (primary) hypertension; J44.9 Chronic obstructive pulmonary disease, unspecified; Z79.84 Long term (current) use of oral hypoglycemic drugs; Z88.0 Allergy status to penicillin; Z88.2 Allergy status to sulfonamides

== ENCOUNTER 2018-11-02 17:53 | Emergency (ER) | payer MEDICARE, OTHER ==
[2018-11-02 17:53] VITALS: BMI 27.6
[2018-11-02 18:08] VITALS: RESP 16; TEMP 98.2; O2SAT 97
--- NOTE | 2018-11-02 19:20 | ED PDOC ---
Lower Extremity Pain/Injury Time Seen by Provider: 11/02/18 18:16 Chief Complaint (Nursing): Lower Extremity Problem/Injury Additional History Per: Patient Additional Complaint(s): Patient is a 73 yo female, PMH of HTN and DM, presents to ED with multiple somatic complaints. Pt reports that she is concerned she might have a UTI, she has been having increased frequency of urination. Pt denies any fever or chills, no nausea or vomiting, no abdominal pain, no dysuria or hematuria. Additionally, Pt with complaints of complaining of bilateral ankle pain and swelling since this morning. Denies injury. Was seen by her teller manager today for the same complaint. XRs were done and Pt was told that she has OA. Past Medical History Reviewed: Nursing Documentation, Vital Signs Vital Signs: Last Vital Signs Temp 98.2 F 11/02/18 18:06 Pulse 90 11/02/18 18:06 Resp 16 11/02/18 18:06 BP 171/90 H 11/02/18 18:06 Pulse Ox 97 11/02/18 18:06 - Medical History PMH: Arthritis, Asthma (Bronchial), Colonic Polyps, COPD, Diabetes, Diverticulitis, Gall Bladder Disease, HTN - Surgical History Surgical History: Tonsillectomy - Family History Family History: States: Unknown Family Hx - Living Arrangements Living Arrangements: With Family - Social History Current smoker - smoking cessation education provided: No Alcohol: None Drugs: Denies - Immunization History Hx Tetanus Toxoid Vaccination: No Hx Influenza Vaccination: No Hx Pneumococcal Vaccination: No - Home Medications Home Medications: Ambulatory Orders Medication Instructions Recorded ALPRAZolam [Xanax] 0.25 mg PO DAILY 12/17/16 Budesonide/Formoterol Fumarate 2 puff INH BID 12/17/16 [Symbicort 80-4.5 Mcg Inhaler] Losartan/Hydrochlorothiazide 1 tab PO DAILY 12/17/16 [Losartan-Hctz 100-12.5 mg Tab] Metoprolol Succinate XL [Toprol XL] 25 mg PO DAILY 12/17/16 Spironolactone [Aldactone] 25 mg PO DAILY 12/17/16 metFORMIN [glucOPHAGE] 850 mg PO BID 12/17/16 Famotidine [Pepcid] 20 mg PO DAILY PRN #6 tab 02/18/17 Ibuprofen [Motrin] 600 mg PO TID 7 Days tab 02/18/17 Docusate [Colace] 100 mg PO BID #30 cap 03/06/17 Levofloxacin 250 mg PO DAILY #10 tablet 03/06/17 Metronidazole [Flagyl] 500 mg PO Q8 #30 tab 03/06/17 Nitrofurantoin Monohyd/M-Cryst 100 mg PO BID #13 capsule 10/01/18 [Macrobid 100 mg Capsule] - Allergies Allergies/Adverse Reactions: Allergies Allergy/AdvReac Type Severity Reaction Status Date / Time iodine Allergy RASH Verified 11/02/18 18:05 iohexol [From Omnipaque] Allergy RASH Verified 11/02/18 18:05 Penicillins Allergy RASH Verified 11/02/18 18:05 Sulfa (Sulfonamide Allergy RASH Verified 11/02/18 18:05 Antibiotics) Review of Systems ROS Statement: Except As Marked, All Systems Reviewed And Found Negative Musculoskeletal: Positive for: Leg Pain Physical Exam - Reviewed Nursing Documentation Reviewed: Yes Vital Signs Reviewed: Yes - Physical Exam Appears: Positive for: Well, Non-toxic, No Acute Distress Head Exam: Positive for: ATRAUMATIC, NORMAL INSPECTION, NORMOCEPHALIC Skin: Positive for: Normal Color, Warm, DRY Eye Exam: Positive for: EOMI, Normal appearance, PERRL ENT: Positive for: Normal ENT Inspection Neck: Positive for: Normal, Painless ROM Cardiovascular/Chest: Positive for: Regular Rate, Rhythm Respiratory: Positive for: CNT, Normal Breath Sounds Gastrointestinal/Abdominal: Positive for: Normal Exam, Soft. Negative for: Tenderness Back: Positive for: Normal Inspection Extremity: Positive for: Normal ROM, Tenderness (below lateral malleolus b/l. mild edema) Neurological/Psych: Positive for: Awake, Alert, Normal Tone - ECG O2 Sat by Pulse Oximetry: 97 Medical Decision Making Medical Decision Making: IV access established and diagnostics ordered Case endorsed to NELY Deleon at 1999 pending diagnostic review and re-eval Disposition - Clinical Impression Clinical Impression: Ankle pain - Patient ED Disposition Is Patient to be Admitted: Transfer of Care - Disposition Disposition: Transfer of Care Disposition Time: 19:23 Condition: STABLE
[2018-11-02 20:30] LABS: BASO % 0.3 % (0.0-2.0); EOS # 0.2 K/uL (0.0-0.7); HEMOGLOBIN 13.3 g/dL (12.0-16.0); LYMPH # 1.7 K/uL (1.0-4.3); LYMPH % 24.3 % (20.0-40.0); MEAN CORPUSCULAR HEMOGLOBIN 28.4 pg (27.0-31.0); MEAN CORPUSCULAR HGB CONC 33.4 g/dL (33.0-37.0); MEAN PLATELET VOLUME 8.1 fl (7.2-11.7); MONO # 0.6 K/uL (0.0-0.8); MONO % 8.9 % (0.0-10.0); NEUT # 4.4 K/uL (1.8-7.0); NEUT % 63.5 % (50.0-75.0); NRBC % 0.2 % (0.0-0.0); RBC 4.68 Mil/uL (3.80-5.20); RED CELL DISTRIBUTION WIDTH 13.3 % (11.5-14.5)
[2018-11-02 20:31] LABS: SQUAMOUS EPITHIAL 1 /hpf (0-5); URINE BACTERIA RARE (<OCC); URINE BILIRUBIN NEGATIVE (NEGATIVE); URINE BLOOD NEGATIVE (NEGATIVE); URINE CLARITY CLEAR (Clear); URINE COLOR STRAW (YELLOW); URINE GLUCOSE (UA) NEG (NEGATIVE); URINE LEUKOCYTE ESTERASE TRACE Leu/uL (Negative); URINE PROTEIN NEGATIVE (NEGATIVE); URINE UROBILINOGEN 0.2-1.0 mg/dL (0.2-1.0)
[2018-11-02 20:37] LABS: ALB/GLOB RATIO 1.4 (1.0-2.1); ALBUMIN 4.2 g/dL (3.5-5.0); ALT/SGPT 25 U/L (9-52); AST/SGOT 26 U/L (14-36); BLOOD UREA NITROGEN 23 mg/dl (7-17); GFR NON-AFRICAN AMERICAN > 60
--- NOTE | 2018-11-02 21:02 | ED PDOC ---
- Laboratory Results Result Diagrams: 11/02/18 19:27 11/02/18 20:10 Lab Results: Total Bilirubin 0.4 mg/dl (0.2-1.3) 11/02/18 20:10 AST 26 U/L (14-36) 11/02/18 20:10 ALT 25 U/L (9-52) 11/02/18 20:10 Alkaline Phosphatase 71 U/L (38-126) 11/02/18 20:10 Total Protein 7.3 G/DL (6.3-8.2) 11/02/18 20:10 Albumin 4.2 g/dL (3.5-5.0) 11/02/18 20:10 Globulin 3.1 gm/dL (2.2-3.9) 11/02/18 20:10 Albumin/Globulin Ratio 1.4 (1.0-2.1) 11/02/18 20:10 Urine Color Straw (YELLOW) 11/02/18 19:43 Urine Clarity Clear (Clear) 11/02/18 19:43 Urine pH 7.0 (5.0-8.0) 11/02/18 19:43 Ur Specific [place] 1.011 (1.003-1.030) 11/02/18 19:43 Urine Protein Negative mg/dL (NEGATIVE) 11/02/18 19:43 Urine Glucose (UA) Neg mg/dL (NEGATIVE) 11/02/18 19:43 Urine Ketones Negative mg/dL (NEGATIVE) 11/02/18 19:43 Urine Blood Negative (NEGATIVE) 11/02/18 19:43 Urine Nitrate Negative (NEGATIVE) 11/02/18 19:43 Urine Bilirubin Negative (NEGATIVE) 11/02/18 19:43 Urine Urobilinogen 0.2-1.0 mg/dL (0.2-1.0) 11/02/18 19:43 Ur Leukocyte Esterase Trace [place]/uL (Negative) 11/02/18 19:43 Urine RBC (Auto) 1 /hpf (0-3) 11/02/18 19:43 Urine Microscopic WBC 3 /hpf (0-5) 11/02/18 19:43 Ur Squamous Epith Cells 1 /hpf (0-5) 11/02/18 19:43 Urine Bacteria Rare (<OCC) 11/02/18 19:43 - ECG O2 Sat by Pulse Oximetry: 97 - Other Rad ankle bilateral xray X-Ray: Viewed By Me X-Ray Interpretation: no acute findings - Progress ED Course And Treament: Case endorsed to lyric writer from Beckie MCKAY pending labs, imaging, re-eval JAQUELINE wrap applied to right ankle Patient educated on findings, discharged with rx Ibuprofen Advised RICE Follow up podiatry Return precautions given Disposition - Clinical Impression Clinical Impression: Ankle pain - POA Present On Arrival: None - Disposition Disposition: Routine/Home Disposition Time: 21:13 Condition: IMPROVED Prescriptions: Ibuprofen [Motrin Tab] 1 tab PO Q6 PRN #15 tab PRN Reason: Pain, Moderate (4-7) Instructions: Joint Pain Forms: [facility] (Occitan)
[2018-11-02 21:47] VITALS: BP 117/88; PULSE 73
--- NOTE | 2018-11-03 08:21 | RAD ---
Date of service: 11/02/2018 PROCEDURE: Bilateral Ankle Radiographs. HISTORY: ankle pain, b/l below lat malleolous COMPARISON: Right ankle radiographs 01/25/2018. Left ankle radiographs 11/02/2010. TECHNIQUE: 6 views obtained. FINDINGS: BONES: Right Ankle: No acute fracture or destructive bony lesion identified. Left Ankle: No acute fracture or destructive bony lesion identified. JOINTS: Right Ankle: Limited cortical sclerosis compatible with mild degenerative joint disease. Ankle mortise maintained. Talar dome intact. Left Ankle: Limited cortical sclerosis compatible with mild degenerative joint disease. Ankle mortise maintained. Talar dome intact. SOFT TISSUES: Right Ankle: There is mild lateral malleolar soft tissue edema appreciated though less than previously shown in right ankle radiographs 01/25/2018. Left Ankle: Normal. Resolution of prior lateral malleolar soft tissue edema. OTHER FINDINGS: None. IMPRESSION: Bilateral mild degenerative joint disease bilateral tibiotalar joints. No acute fracture or dislocation bilaterally. Limited right lateral malleolar soft tissue edema appreciated.
== END 2018-11-02 21:46 | disposition home or self-care (01) ==
LOC: H.ER 17:53
DX: M25.571 Pain in right ankle and joints of right foot (principal); M25.572 Pain in left ankle and joints of left foot; E11.9 Type 2 diabetes mellitus without complications; I10 Essential (primary) hypertension; J44.9 Chronic obstructive pulmonary disease, unspecified; M19.071 Primary osteoarthritis, right ankle and foot; Z79.84 Long term (current) use of oral hypoglycemic drugs; Z88.0 Allergy status to penicillin; Z88.2 Allergy status to sulfonamides
CPT/HCPCS: 73610; 80053; 81003; 85025; 87086; 96374; 99285; J1885

== ENCOUNTER 2018-11-28 11:32 | Emergency (ER) | payer MEDICARE, OTHER ==
[2018-11-28 11:37] VITALS: BMI 27.4
[2018-11-28] MEDS ORDERED: Albuterol-Ipratrop 3 mg / 0.5 (3 ml) UD INH STA ×2 (11:50→14:33)
[2018-11-28] MEDS ORDERED: Albuterol-Ipratrop 3 mg / 0.5 (3 ml) UD ONE ×2 (11:54→15:22)
--- NOTE | 2018-11-28 11:57 | ED PDOC ---
HPI: Asthma Time Seen by Provider: 11/28/18 11:44 Chief Complaint (Nursing): Respiratory Distress Chief Complaint (Provider): Respiratory Distress History Per: Patient History/Exam Limitations: no limitations Onset/Duration Of Symptoms: Mins Current Symptoms Are (Timing): Still Present Additional Complaint(s): Patient is a 72 y/o female with an extensive PMHx who presents to the ED for evaluation of an asthma attack of sudden onset prior to arrival. Patient reported a cough, wheeze, and shortness of breath, thus, prompting her to call 911. Of note, patient has been taking the antibiotics prescribed yesterday, by clinic, for a UTI. Hence, patient also complains of dysuria. Patient denies fever and back pain. PCP: Dr. Claudio Segovia Past Medical History Reviewed: Historical Data, Nursing Documentation, Vital Signs Vital Signs: Last Vital Signs Temp 98.5 F 11/28/18 11:37 Pulse 112 H 11/28/18 11:37 Resp 18 11/28/18 11:37 BP 147/84 11/28/18 11:37 Pulse Ox 99 11/28/18 11:37 Primary Care Provider: Claudio Segovia - Medical History PMH: Anxiety, Arthritis, Asthma (Bronchial), Colonic Polyps, COPD, Diabetes, Diverticulitis, Gall Bladder Disease, HTN - Surgical History Surgical History: Tonsillectomy - Family History Family History: States: Unknown Family Hx - Social History Ex-Smoker (has not smoked in the last 12 months): Yes (34 years ago) - Immunization History Hx Tetanus Toxoid Vaccination: No Hx Influenza Vaccination: No Hx Pneumococcal Vaccination: No - Home Medications Home Medications: Ambulatory Orders Medication Instructions Recorded ALPRAZolam [Xanax] 0.25 mg PO DAILY 12/17/16 Budesonide/Formoterol Fumarate 2 puff INH BID 12/17/16 [Symbicort 80-4.5 Mcg Inhaler] Losartan/Hydrochlorothiazide 1 tab PO DAILY 12/17/16 [Losartan-Hctz 100-12.5 mg Tab] Metoprolol Succinate XL [Toprol XL] 25 mg PO DAILY 12/17/16 Spironolactone [Aldactone] 25 mg PO DAILY 12/17/16 metFORMIN [glucOPHAGE] 850 mg PO BID 12/17/16 Famotidine [Pepcid] 20 mg PO DAILY PRN #6 tab 02/18/17 Docusate [Colace] 100 mg PO BID #30 cap 03/06/17 Nitrofurantoin Monohyd/M-Cryst 100 mg PO BID #13 capsule 10/01/18 [Macrobid 100 mg Capsule] Ibuprofen [Motrin Tab] 1 tab PO Q6 PRN #15 tab 11/02/18 Prednisone [Deltasone] 20 mg PO DAILY #6 tablet 11/28/18 - Allergies Allergies/Adverse Reactions: Allergies Allergy/AdvReac Type Severity Reaction Status Date / Time iodine Allergy RASH Verified 11/02/18 18:05 iohexol [From Omnipaque] Allergy RASH Verified 11/02/18 18:05 Penicillins Allergy RASH Verified 11/02/18 18:05 Sulfa (Sulfonamide Allergy RASH Verified 11/02/18 18:05 Antibiotics) Review of Systems ROS Statement: Except As Marked, All Systems Reviewed And Found Negative Constitutional: Negative for: Fever Respiratory: Positive for: Cough, Shortness of Breath, Wheezing Genitourinary Female: Positive for: Dysuria Musculoskeletal: Negative for: Back Pain Physical Exam - Reviewed Nursing Documentation Reviewed: Yes Vital Signs Reviewed: Yes - Physical Exam Appears: Positive for: No Acute Distress Head Exam: Positive for: ATRAUMATIC, NORMAL INSPECTION, NORMOCEPHALIC Skin: Positive for: Normal Color, Warm, DRY Eye Exam: Positive for: EOMI, Normal appearance, PERRL Neck: Positive for: Normal, Painless ROM, Supple Cardiovascular/Chest: Positive for: Regular Rate, Rhythm. Negative for: Murmur Respiratory: Positive for: Wheezing (trace in left lung base) Gastrointestinal/Abdominal: Positive for: Normal Exam, Soft. Negative for: Tenderness Back: Positive for: Normal Inspection. Negative for: L CVA Tenderness, R CVA Tenderness Extremity: Positive for: Normal ROM. Negative for: Pedal Edema, Deformity Neurological/Psych: Positive for: Alert, Oriented (x3), Other (speaking full sentences) - Laboratory Results Result Diagrams: 11/28/18 12:15 11/28/18 12:15 - ECG ECG Rhythm: Positive for: Sinus Tachycardia. Negative for: ST/T Changes Rate: 107 O2 Sat by Pulse Oximetry: 99 (RA) Pulse Ox Interpretation: Normal Medical Decision Making Medical Decision Making: Time: 1150 Impression: Likely asthma with a UTI Plan: EKG [employer]PER[employer]OR CMP Magnesium Troponin I CBC CXR Duoneb 3 ml INH Urine Culture Peak Flow Pre/Post TX .Pre/Post Treatment UA Time: 1232 FINDINGS: LUNGS: No active pulmonary disease. PLEURA: No significant pleural effusion identified. No pneumothorax apparent. CARDIOVASCULAR: Aneurysmal dilatation, tortuous thoracic aorta. Atherosclerotic calcifications identified primarily aortic arch. Normal cardiac size. No pulmonary vascular congestion. OSSEOUS STRUCTURES: No significant abnormalities. VISUALIZED UPPER ABDOMEN: Normal. OTHER FINDINGS: None. IMPRESSION: No active disease. No significant interval change compared to the prior examination(s). Scribe Attestation: Documented by Abelardo Marino, acting as a scribe for Tre Sorenson III, DO. Provider Scribe Attestation: All medical record entries made by the Scribe were at my direction and personally dictated by me. I have reviewed the chart and agree that the record accurately reflects my personal performance of the history, physical exam, medical decision making, and the department course for this patient. I have also personally directed, reviewed, and agree with the discharge instructions and disposition Disposition - Clinical Impression Clinical Impression: Asthma exacerbation, UTI (urinary tract infection) - Patient ED Disposition Is Patient to be Admitted: No Counseled Patient/Family Regarding: Studies Performed, Diagnosis, Need For Followup, Rx Given - Disposition Referrals: Claudio Segovia MD [Family Provider] - Disposition: Routine/Home Disposition Time: 15:01 Condition: STABLE Additional Instructions: See your doctor in 2-3 days for followup. Return to ER for any new or worsening symptoms. Continue antibiotics as prior prescribed. Start prednisone for 4 days total. Prescriptions: Prednisone [Deltasone] 20 mg PO DAILY #6 tablet Instructions: Urinary Tract Infections in Adults, Asthma, Adult (DC), Avoiding Asthma Triggers Forms: [facility] ([place]uan)
[2018-11-28 12:34] LABS: BASO % 0.6 % (0.0-2.0); EOS # 0.1 K/uL (0.0-0.7); EOS % 1.4 % (0.0-4.0); HEMOGLOBIN 13.2 g/dL (12.0-16.0); LYMPH % 16.3 % (20.0-40.0); MEAN CELL VOLUME 83.7 fl (81.0-99.0); MEAN CORPUSCULAR HEMOGLOBIN 27.9 pg (27.0-31.0); MEAN CORPUSCULAR HGB CONC 33.4 g/dL (33.0-37.0); MEAN PLATELET VOLUME 7.7 fl (7.2-11.7); MONO # 0.5 K/uL (0.0-0.8); MONO % 8.9 % (0.0-10.0); NEUT # 4.5 K/uL (1.8-7.0); NEUT % 72.8 % (50.0-75.0); RBC 4.74 Mil/uL (3.80-5.20); RED CELL DISTRIBUTION WIDTH 12.9 % (11.5-14.5); WHITE BLOOD COUNT 6.2 K/uL (4.8-10.8)
--- NOTE | 2018-11-28 12:36 | RAD ---
Date of service: 11/28/2018 HISTORY: chest pain/ r/o infiltrate COMPARISON: 10/01/2018 TECHNIQUE: Chest PA and lateral views FINDINGS: LUNGS: No active pulmonary disease. PLEURA: No significant pleural effusion identified. No pneumothorax apparent. CARDIOVASCULAR: Aneurysmal dilatation, tortuous thoracic aorta. Atherosclerotic calcifications identified primarily aortic arch. Normal cardiac size. No pulmonary vascular congestion. OSSEOUS STRUCTURES: No significant abnormalities. VISUALIZED UPPER ABDOMEN: Normal. OTHER FINDINGS: None. IMPRESSION: No active disease. No significant interval change compared to the prior examination(s).
[2018-11-28 12:45] LABS: RENAL EPITHELIAL 1 /hpf (0-3); SQUAMOUS EPITHIAL 20 /hpf (0-5); URINE BILIRUBIN NEGATIVE (NEGATIVE); URINE BLOOD NEGATIVE (NEGATIVE); URINE CLARITY SLIGHTY-CLOUDY (Clear); URINE COLOR YELLOW (YELLOW); URINE GLUCOSE (UA) NEG (NEGATIVE); URINE HYALINE CAST 0-2 /hpf (0-2); URINE LEUKOCYTE ESTERASE MOD Leu/uL (Negative); URINE PROTEIN 30 mg/dL (NEGATIVE); URINE UROBILINOGEN 0.2-1.0 mg/dL (0.2-1.0)
[2018-11-28 12:47] LABS: ALB/GLOB RATIO 1.4 (1.0-2.1); ALBUMIN 4.4 g/dL (3.5-5.0); ALT/SGPT 24 U/L (9-52); AST/SGOT 24 U/L (14-36); BLOOD UREA NITROGEN 22 mg/dl (7-17); CALCIUM 9.5 mg/dL (8.4-10.2); GFR NON-AFRICAN AMERICAN > 60
[2018-11-28 12:55] LABS: B-TYPE NATRIURETIC PEPTIDE 78.7 pg/ml (0-900)
[2018-11-28 13:37] VITALS: RESP 18
[2018-11-28 15:50] VITALS: BP 130/71; TEMP 98; O2SAT 99
--- NOTE | 2018-11-29 17:58 | CARD ---
APPROVED REPORT Date of service: 11/28/2018 EKG Measurement Heart [id number] <Conclusion> Sinus tachycardia Otherwise normal ECG
[2018-12-01 15:39] VITALS: PULSE 107
== END 2018-11-28 15:48 | disposition home or self-care (01) ==
LOC: H.ER 11:32
DX: J45.901 Unspecified asthma with (acute) exacerbation (principal); N39.0 Urinary tract infection, site not specified; E11.9 Type 2 diabetes mellitus without complications; I10 Essential (primary) hypertension; J44.9 Chronic obstructive pulmonary disease, unspecified; Z79.84 Long term (current) use of oral hypoglycemic drugs; Z87.891 Personal history of nicotine dependence; Z88.0 Allergy status to penicillin; Z88.2 Allergy status to sulfonamides